=== PATIENT | female | born 1940 | race African-American/Black ===

== ENCOUNTER 2017-09-22 15:48 | Inpatient (IN) ==
[2017-09-22] MEDS ORDERED: methylPREDNISolone SOD SUC 40 MG/1 ML VIAL IV STA (16:21)
[2017-09-22] MEDS ORDERED: ORPHENADRINE 60 MG/2 ML VIAL IV STA (16:21)
[2017-09-22] MEDS ORDERED: KETOROLAC 30 MG/1 ML VIAL IV STA (16:21)
[2017-09-22] MEDS ORDERED: KETOROLAC 30 MG/1 ML VIAL ONE (16:33)
[2017-09-22] MEDS ORDERED: ORPHENADRINE 60 MG/2 ML VIAL ONE (16:33)
[2017-09-22] MEDS ORDERED: methylPREDNISolone SOD SUC 40 MG/1 ML VIAL ONE (16:34)
[2017-09-22] MEDS ORDERED: FUROSEMIDE 40 MG/4 ML VIAL IV STA (17:00)
[2017-09-22 17:16] LABS: Basophils # 0.1 10*3/uL (0.0-0.2); Basophils % 0.7 % (0.0-0.8); Eosinophils # 0.1 10*3/uL (0.0-0.87); Eosinophils % 1.2 % (0.00-10.9); Hematocrit 39.6 VOL% (35.7-47.0); Hemoglobin 13.6 GM/DL (12.0-16.0); Immature Granulocytes % 0.4 %; Immature Granulocytes Absolute 0.03 #; Lymphocytes # 1.7 10*3/uL (1.4-4.0); Mean Corpuscular HGB Conc 34.3 GM/DL (32-36); Mean Corpuscular Hemoglobin 30 PG (27-34); Mean Corpuscular Volume 86.7 FL (87-102); Mean Platelet Volume 9.8 FL (9.6-12.0); Monocytes # 0.8 10*3/uL (0.11-0.8); Monocytes % 10.1 % (1.7-12.7); Neutrophils # 5.6 10*3/uL (1.4-7.4); Neutrophils % 67.6 % (38.7-73.9); Platelet Count 215 T/CUMM (130-400); Red Blood Count 4.57 MC/CUMM (3.8-5.5); Red Cell Distribution Width 13.9 % (9.3-17.3); White Blood Count 8.3 T/CUMM (4-12)
[2017-09-22 17:25] LABS: INR 1.2; PT Patient Result 12.7 SECS; Partial Thromboplastin Time 33.8 SECS (0-40)
[2017-09-22] MEDS ORDERED: FUROSEMIDE 40 MG/4 ML VIAL ONE (17:38)
[2017-09-22 18:01] LABS: Albumin 2.7 G/DL (3.4-5.0); Bilirubin,Total 0.5 MG/DL (0.2-1.0); CKMB % 2.1 %; Calcium 8.2 MG/DL (8.5-10.1); Osmolality,Calculated 269.8 MOS/KG (273-304); Potassium 3.6 MMOL/L (3.5-5.1); Total Protein 7.6 G/DL (6.4-8.3); Troponin I Only 0.016 NG/ML (0.00-0.045)
[2017-09-22] MEDS ORDERED: hydrALAZINE 20 MG/1 ML VIAL IV STA ×2 (18:49→18:51)
[2017-09-22] MEDS ORDERED: NITROGLYCERIN 2% OINT 1 INCH/GM PACK TOP STA (19:02)
[2017-09-22] MEDS ORDERED: GLUCAGON 1 MG VIAL IM PRN (19:02)
[2017-09-22 19:17] LABS: Apearance,Urine CLEAR (Clear); Bilirubin,Urine Negative (Negative); Blood, Urine Moderate mg/dL (Negative); Glucose,Urine (UA) Negative (Negative); Hyaline Casts,Urine 1 /LPF (0-3); Ketones,Urine Negative (Negative); Mucus,Urine Occasional /LPF (Occasional); Nitrite,Urine Negative (Negative); Protein,Urine 100 MG/DL; RBC,Urine 14 /HPF (0-4); Squamous Epithelial Cell,Urine Occasional /HPF (0-10); Urine Color Straw (Yellow); Urine Specific Gravity 1.005 (1.001-1.035); Urine Urobilinogen < 2.0 EU/DL (0.2-1.0); WBC,Urine 1 /HPF (0-6)
[2017-09-22] MEDS ORDERED: NITROGLYCERIN 2% OINT 1 INCH/GM PACK TOP ONE (19:19)
[2017-09-22] MEDS ORDERED: hydrALAZINE 20 MG/1 ML VIAL ONE (19:20)
[2017-09-22] MEDS: INSULIN REGULAR 100 UNIT/ML SUBCUT SCH (21:25)
[2017-09-22] MEDS ORDERED: ALBUTEROL/IPRATROPIUM 3 ML NEB RESP TX PRN (21:57)
[2017-09-22] MEDS: tiZANidine 4 MG TABLET PO SCH (22:10)
[2017-09-23] MEDS ORDERED: INFLUENZA VIRUS VACCINE 0.5 ML SYRINGE IM ONE (03:12)
[2017-09-23] MEDS ORDERED: FUROSEMIDE 40 MG/4 ML VIAL IV SCH (08:00)
[2017-09-23 08:10] LABS: Albumin 2.4 G/DL (3.4-5.0); Bilirubin,Total 0.4 MG/DL (0.2-1.0); Calcium 8.6 MG/DL (8.5-10.1); Osmolality,Calculated 275.7 MOS/KG (273-304); Potassium 3.6 MMOL/L (3.5-5.1); Total Protein 6.6 G/DL (6.4-8.3)
[2017-09-23 09:50] LABS: Troponin I Only < 0.015 NG/ML (0.00-0.045)
[2017-09-23] MEDS: INSULIN REGULAR 100 UNIT/ML SUBCUT SCH ×4 (09:58→20:16)
[2017-09-23] MEDS: MAGNESIUM CHLORIDE 64 MG TABLET PO SCH (09:59)
[2017-09-23] MEDS: SERTRALINE 50 MG TABLET PO SCH (09:59)
[2017-09-23] MEDS: GLIMEPIRIDE 2 MG TABLET PO SCH (09:59)
[2017-09-23] MEDS: NEBIVOLOL 5 MG TABLET PO SCH (10:00)
[2017-09-23] MEDS: POTASSIUM CHLORIDE 10 MEQ TABLET PO SCH ×2 (10:00→21:54)
[2017-09-23] MEDS: LEVOTHYROXINE 100 MCG TABLET PO SCH (10:00)
[2017-09-23] MEDS: LOSARTAN 50 MG TABLET PO SCH (10:00)
[2017-09-23] MEDS: ASPIRIN CHEW 81 MG TABLET PO SCH (10:00)
[2017-09-23] MEDS: tiZANidine 4 MG TABLET PO SCH ×3 (10:00→21:54)
[2017-09-23] MEDS: FUROSEMIDE 20 MG/2 ML VIAL IV SCH ×2 (10:28→18:41)
[2017-09-23 10:56] LABS: Troponin I Only 0.016 NG/ML (0.00-0.045)
[2017-09-23 13:44] LABS: Troponin I Only < 0.015 NG/ML (0.00-0.045)
[2017-09-23 16:24] LABS: CKMB % 3.1 %; Troponin I Only < 0.015 NG/ML (0.00-0.045)
[2017-09-23] MEDS ORDERED: FAMOTIDINE 20 MG TABLET PO SCH (21:00)
[2017-09-24 06:20] LABS: Basophils # 0.1 10*3/uL (0.0-0.2); Basophils % 0.4 % (0.0-0.8); Eosinophils # 0.1 10*3/uL (0.0-0.87); Eosinophils % 0.8 % (0.00-10.9); Hematocrit 32.7 VOL% (35.7-47.0); Hemoglobin 11.2 GM/DL (12.0-16.0); Immature Granulocytes % 0.3 %; Immature Granulocytes Absolute 0.04 #; Lymphocytes # 3.2 10*3/uL (1.4-4.0); Lymphocytes % 26.3 % (21.3-54.2); Mean Corpuscular HGB Conc 34.3 GM/DL (32-36); Mean Corpuscular Hemoglobin 30 PG (27-34); Mean Corpuscular Volume 86.7 FL (87-102); Mean Platelet Volume 10.7 FL (9.6-12.0); Monocytes # 0.9 10*3/uL (0.11-0.8); Monocytes % 7.4 % (1.7-12.7); Neutrophils # 7.7 10*3/uL (1.4-7.4); Neutrophils % 64.8 % (38.7-73.9); Platelet Count 244 T/CUMM (130-400); Red Blood Count 3.77 MC/CUMM (3.8-5.5); Red Cell Distribution Width 14.3 % (9.3-17.3)
[2017-09-24 07:06] LABS: Calcium 8.1 MG/DL (8.5-10.1); Magnesium 2.4 MG/DL (1.8-2.4); Osmolality,Calculated 276.5 MOS/KG (273-304); Potassium 3.3 MMOL/L (3.5-5.1)
[2017-09-24 07:18] LABS: Risk Ratio 2.84; VLDL CHOLESTEROL 19.2 MG/DL
[2017-09-24] MEDS: ALUMINUM/MAGNES/SIMETH MAX STR 30 ML UDCUP PO PRN ×3 (09:30→21:42)
[2017-09-24] MEDS: ALBUTEROL/IPRATROPIUM 3 ML NEB RESP TX SCH ×4 (10:46→23:20)
[2017-09-24] MEDS: INSULIN REGULAR 100 UNIT/ML SUBCUT SCH ×4 (12:05→20:50)
[2017-09-24] MEDS: LEVOTHYROXINE 100 MCG TABLET PO SCH (12:51)
[2017-09-24] MEDS: MAGNESIUM CHLORIDE 64 MG TABLET PO SCH (12:51)
[2017-09-24] MEDS: POTASSIUM CHLORIDE 10 MEQ TABLET PO SCH ×2 (12:52→20:51)
[2017-09-24] MEDS: GLIMEPIRIDE 2 MG TABLET PO SCH (12:52)
[2017-09-24] MEDS: SERTRALINE 50 MG TABLET PO SCH (12:52)
[2017-09-24] MEDS: ASPIRIN CHEW 81 MG TABLET PO SCH (12:52)
[2017-09-24] MEDS: tiZANidine 4 MG TABLET PO SCH ×3 (12:53→20:51)
[2017-09-24] MEDS: FUROSEMIDE 20 MG/2 ML VIAL IV SCH ×2 (12:53→15:35)
[2017-09-24] MEDS: NEBIVOLOL 5 MG TABLET PO SCH (12:53)
[2017-09-24] MEDS: LOSARTAN 50 MG TABLET PO SCH (13:03)
[2017-09-24] MEDS: ONDANSETRON 4 MG/2 ML VIAL IV PRN (14:02)
[2017-09-24] MEDS: POLYETHYLENE GLYCOL POWDER 17 GM PACK PO PRN (20:56)
[2017-09-24] MEDS ORDERED: FAMOTIDINE 20 MG TABLET PO SCH (21:00)
[2017-09-24 21:11] LABS: CKMB % 6.9 %; Troponin I Only < 0.015 NG/ML (0.00-0.045)
[2017-09-25] MEDS: ALBUTEROL/IPRATROPIUM 3 ML NEB RESP TX SCH ×5 (03:37→20:20)
[2017-09-25 03:44] LABS: Magnesium 2.5 MG/DL (1.8-2.4); Osmolality,Calculated 276.5 MOS/KG (273-304); Potassium 3.8 MMOL/L (3.5-5.1)
[2017-09-25 03:55] LABS: CKMB % 6.2 %; Troponin I Only 0.016 NG/ML (0.00-0.045)
[2017-09-25 03:56] LABS: Basophils # 0.1 10*3/uL (0.0-0.2); Basophils % 0.6 % (0.0-0.8); Eosinophils # 0.1 10*3/uL (0.0-0.87); Eosinophils % 1.3 % (0.00-10.9); Hematocrit 32.1 VOL% (35.7-47.0); Hemoglobin 10.8 GM/DL (12.0-16.0); Immature Granulocytes % 0.3 %; Immature Granulocytes Absolute 0.03 #; Lymphocytes # 2.7 10*3/uL (1.4-4.0); Lymphocytes % 29.5 % (21.3-54.2); Mean Corpuscular HGB Conc 33.6 GM/DL (32-36); Mean Corpuscular Hemoglobin 30 PG (27-34); Mean Corpuscular Volume 87.9 FL (87-102); Mean Platelet Volume 11.4 FL (9.6-12.0); Monocytes # 0.9 10*3/uL (0.11-0.8); Monocytes % 9.7 % (1.7-12.7); Neutrophils # 5.5 10*3/uL (1.4-7.4); Neutrophils % 58.6 % (38.7-73.9); Platelet Count 139 T/CUMM (130-400); Red Blood Count 3.65 MC/CUMM (3.8-5.5); Red Cell Distribution Width 14.7 % (9.3-17.3); White Blood Count 9.3 T/CUMM (4-12)
[2017-09-25 05:46] LABS: Hypochromasia 2+; Platelet Estimate Decreased
[2017-09-25] MEDS: traMADol 50 MG TABLET PO PRN (05:51)
[2017-09-25 08:23] LABS: CKMB % 6.1 %; Troponin I Only < 0.015 NG/ML (0.00-0.045)
[2017-09-25] MEDS: tiZANidine 4 MG TABLET PO SCH ×3 (09:19→21:32)
[2017-09-25] MEDS: LEVOTHYROXINE 100 MCG TABLET PO SCH (09:19)
[2017-09-25] MEDS: MAGNESIUM CHLORIDE 64 MG TABLET PO SCH (09:19)
[2017-09-25] MEDS: POTASSIUM CHLORIDE 10 MEQ TABLET PO SCH ×2 (09:20→21:32)
[2017-09-25] MEDS: SERTRALINE 50 MG TABLET PO SCH (09:20)
[2017-09-25] MEDS: ASPIRIN CHEW 81 MG TABLET PO SCH (09:20)
[2017-09-25] MEDS: INSULIN REGULAR 100 UNIT/ML SUBCUT SCH ×4 (09:20→21:31)
[2017-09-25] MEDS: GLIMEPIRIDE 2 MG TABLET PO SCH (09:20)
[2017-09-25] MEDS: FUROSEMIDE 20 MG/2 ML VIAL IV SCH ×2 (09:21→15:02)
[2017-09-25] MEDS: ALUMINUM/MAGNES/SIMETH MAX STR 30 ML UDCUP PO PRN (11:05)
[2017-09-25] MEDS: PANTOPRAZOLE 40 MG TABLET PO SCH (14:55)
[2017-09-25] MEDS: POLYETHYLENE GLYCOL POWDER 17 GM PACK PO PRN (21:33)
[2017-09-26] MEDS: ALBUTEROL/IPRATROPIUM 3 ML NEB RESP TX SCH ×6 (00:40→19:35)
[2017-09-26] MEDS: traMADol 50 MG TABLET PO PRN (02:00)
[2017-09-26 02:23] LABS: Basophils # 0.1 10*3/uL (0.0-0.2); Basophils % 0.8 % (0.0-0.8); Eosinophils # 0.2 10*3/uL (0.0-0.87); Eosinophils % 2.1 % (0.00-10.9); Hematocrit 31.6 VOL% (35.7-47.0); Hemoglobin 10.8 GM/DL (12.0-16.0); Immature Granulocytes % 0.3 %; Immature Granulocytes Absolute 0.02 #; Lymphocytes # 2.5 10*3/uL (1.4-4.0); Lymphocytes % 32.7 % (21.3-54.2); Mean Corpuscular HGB Conc 34.2 GM/DL (32-36); Mean Corpuscular Hemoglobin 30 PG (27-34); Mean Corpuscular Volume 88.5 FL (87-102); Mean Platelet Volume 10.8 FL (9.6-12.0); Monocytes # 0.8 10*3/uL (0.11-0.8); Monocytes % 10.9 % (1.7-12.7); NRBC # 0.02 10*3/uL; Neutrophils # 4.1 10*3/uL (1.4-7.4); Neutrophils % 53.2 % (38.7-73.9); Platelet Count 230 T/CUMM (130-400); Red Blood Count 3.57 MC/CUMM (3.8-5.5); Red Cell Distribution Width 14.7 % (9.3-17.3); White Blood Count 7.7 T/CUMM (4-12)
[2017-09-26 02:55] LABS: Calcium 7.9 MG/DL (8.5-10.1); Magnesium 2.8 MG/DL (1.8-2.4); Osmolality,Calculated 276.5 MOS/KG (273-304); Potassium 3.7 MMOL/L (3.5-5.1)
[2017-09-26] MEDS: ALUMINUM/MAGNES/SIMETH MAX STR 30 ML UDCUP PO PRN ×3 (04:15→21:13)
[2017-09-26] MEDS: INSULIN REGULAR 100 UNIT/ML SUBCUT SCH ×4 (08:33→21:13)
[2017-09-26] MEDS: PANTOPRAZOLE 40 MG TABLET PO SCH (09:19)
[2017-09-26] MEDS: GLIMEPIRIDE 2 MG TABLET PO SCH (09:19)
[2017-09-26] MEDS: LEVOTHYROXINE 100 MCG TABLET PO SCH (09:19)
[2017-09-26] MEDS: POTASSIUM CHLORIDE 10 MEQ TABLET PO SCH ×2 (09:21→21:11)
[2017-09-26] MEDS: ASPIRIN CHEW 81 MG TABLET PO SCH (09:21)
[2017-09-26] MEDS: MAGNESIUM CHLORIDE 64 MG TABLET PO SCH (09:21)
[2017-09-26] MEDS: FUROSEMIDE 20 MG/2 ML VIAL IV SCH ×2 (09:22→15:35)
[2017-09-26] MEDS: SERTRALINE 50 MG TABLET PO SCH (09:22)
[2017-09-26] MEDS: tiZANidine 4 MG TABLET PO SCH ×3 (09:22→21:12)
[2017-09-26] MEDS: ONDANSETRON 4 MG/2 ML VIAL IV PRN (09:33)
[2017-09-26] MEDS ORDERED: HYDROmorphone 2 MG/1 ML VIAL IV ONE (10:15)
[2017-09-26] MEDS: HYDROmorphone 2 MG/1 ML VIAL IV PRN ×2 (21:12→21:17)
[2017-09-26] MEDS: POLYETHYLENE GLYCOL POWDER 17 GM PACK PO SCH (21:13)
[2017-09-27] MEDS: ALBUTEROL/IPRATROPIUM 3 ML NEB RESP TX SCH ×6 (00:34→19:23)
[2017-09-27 04:29] LABS: Basophils # 0.1 10*3/uL (0.0-0.2); Basophils % 0.6 % (0.0-0.8); Eosinophils # 0.2 10*3/uL (0.0-0.87); Eosinophils % 2.7 % (0.00-10.9); Hematocrit 33.7 VOL% (35.7-47.0); Hemoglobin 11.1 GM/DL (12.0-16.0); Immature Granulocytes % 0.2 %; Immature Granulocytes Absolute 0.02 #; Mean Corpuscular HGB Conc 32.9 GM/DL (32-36); Mean Corpuscular Hemoglobin 30 PG (27-34); Mean Corpuscular Volume 90.1 FL (87-102); Mean Platelet Volume 10.4 FL (9.6-12.0); Monocytes % 12.4 % (1.7-12.7); Neutrophils # 3.9 10*3/uL (1.4-7.4); Neutrophils % 47.1 % (38.7-73.9); Platelet Count 247 T/CUMM (130-400); Red Blood Count 3.74 MC/CUMM (3.8-5.5); Red Cell Distribution Width 14.8 % (9.3-17.3); White Blood Count 8.2 T/CUMM (4-12)
[2017-09-27] MEDS: DEXTROSE 50% 25 GM/50 ML VIAL IV PRN ×2 (04:55→07:55)
[2017-09-27 05:04] LABS: Calcium 8.2 MG/DL (8.5-10.1); Osmolality,Calculated 265.2 MOS/KG (273-304); Potassium 4.6 MMOL/L (3.5-5.1)
[2017-09-27] MEDS ORDERED: LORazepam 2 MG/1 ML VIAL IV ONE (08:13)
[2017-09-27] MEDS ORDERED: methylPREDNISolone SOD SUC 125 MG/2 ML VIAL IV ONE (08:14)
[2017-09-27] MEDS: FUROSEMIDE 20 MG/2 ML VIAL IV SCH ×2 (10:10→17:04)
[2017-09-27] MEDS: INSULIN REGULAR 100 UNIT/ML SUBCUT SCH ×4 (10:50→22:08)
[2017-09-27] MEDS: GLIMEPIRIDE 2 MG TABLET PO SCH (10:51)
[2017-09-27] MEDS: tiZANidine 4 MG TABLET PO SCH ×3 (10:51→22:08)
[2017-09-27] MEDS ORDERED: DEXTROSE 5% NACL 0.45% 1,000 ML IV SCH (12:30)
[2017-09-27] MEDS: DEXTROSE 5% NACL 0.9% 1,000 ML IV SCH (12:46)
[2017-09-27] MEDS: HYDROmorphone 2 MG/1 ML VIAL IV PRN ×2 (15:28→23:43)
[2017-09-27] MEDS: ISOSORBIDE MONONITRATE 30 MG TABLET PO SCH (15:29)
[2017-09-27] MEDS: LEVOTHYROXINE 100 MCG TABLET PO SCH (15:29)
[2017-09-27] MEDS: SERTRALINE 50 MG TABLET PO SCH (15:29)
[2017-09-27] MEDS: POLYETHYLENE GLYCOL POWDER 17 GM PACK PO SCH ×2 (15:30→22:09)
[2017-09-27] MEDS: PANTOPRAZOLE 40 MG TABLET PO SCH (15:30)
[2017-09-27] MEDS: POTASSIUM CHLORIDE 10 MEQ TABLET PO SCH ×2 (15:30→22:09)
[2017-09-27] MEDS: MAGNESIUM CHLORIDE 64 MG TABLET PO SCH (15:30)
[2017-09-27 17:56] LABS: Osmolality,Calculated 266.5 MOS/KG (273-304)
[2017-09-27] MEDS ORDERED: SODIUM POLYSTYRENE SULFATE 15 GM/60 ML BOTTLE PO ONE (18:07)
[2017-09-28] MEDS: ALBUTEROL/IPRATROPIUM 3 ML NEB RESP TX SCH ×6 (01:14→19:11)
[2017-09-28 09:54] LABS: Calcium 8.9 MG/DL (8.5-10.1); Osmolality,Calculated 264.4 MOS/KG (273-304); Potassium 5.3 MMOL/L (3.5-5.1)
[2017-09-28] MEDS: INSULIN REGULAR 100 UNIT/ML SUBCUT SCH ×4 (10:10→23:28)
[2017-09-28] MEDS: GLIMEPIRIDE 2 MG TABLET PO SCH (10:14)
[2017-09-28] MEDS: FUROSEMIDE 20 MG/2 ML VIAL IV SCH (10:43)
[2017-09-28] MEDS: POTASSIUM CHLORIDE 10 MEQ TABLET PO SCH (10:44)
[2017-09-28] MEDS: ISOSORBIDE MONONITRATE 30 MG TABLET PO SCH (10:44)
[2017-09-28] MEDS: POLYETHYLENE GLYCOL POWDER 17 GM PACK PO SCH ×2 (10:44→23:28)
[2017-09-28] MEDS: DEXTROSE 5% NACL 0.9% 1,000 ML IV SCH (10:44)
[2017-09-28] MEDS: PANTOPRAZOLE 40 MG TABLET PO SCH (10:44)
[2017-09-28] MEDS: LEVOTHYROXINE 100 MCG TABLET PO SCH (10:45)
[2017-09-28] MEDS: MAGNESIUM CHLORIDE 64 MG TABLET PO SCH (10:45)
[2017-09-28] MEDS: tiZANidine 4 MG TABLET PO SCH (10:45)
[2017-09-28] MEDS: SERTRALINE 50 MG TABLET PO SCH (10:47)
[2017-09-28 11:24] LABS: Hemoglobin 12.3 GM/DL (12.0-16.0); Immature Granulocytes % 0.5 %; Immature Granulocytes Absolute 0.03 #; Lymphocytes # 0.8 10*3/uL (1.4-4.0); Lymphocytes % 13.6 % (21.3-54.2); Mean Corpuscular HGB Conc 33.2 GM/DL (32-36); Mean Corpuscular Hemoglobin 29 PG (27-34); Mean Corpuscular Volume 88.5 FL (87-102); Mean Platelet Volume 10.9 FL (9.6-12.0); Monocytes # 0.3 10*3/uL (0.11-0.8); Monocytes % 4.4 % (1.7-12.7); Neutrophils # 4.6 10*3/uL (1.4-7.4); Neutrophils % 81.5 % (38.7-73.9); Platelet Count 331 T/CUMM (130-400); Red Blood Count 4.18 MC/CUMM (3.8-5.5); Red Cell Distribution Width 14.6 % (9.3-17.3); White Blood Count 5.7 T/CUMM (4-12)
[2017-09-28] MEDS: ALBUMIN 25% 12.5 GM in PREMIX 1 EACH IV SCH (14:14)
[2017-09-28] MEDS: CLORAZEPATE 7.5 MG TABLET PO SCH ×2 (14:14→23:28)
[2017-09-28] MEDS: FUROSEMIDE 40 MG/4 ML VIAL IV SCH (17:45)
[2017-09-28] MEDS: DOBUTamine 500 MG/250 ML PREMIX IV SCH (17:51)
[2017-09-28] MEDS ORDERED: diphenhydrAMINE CAP 50 MG CAPSULE PO PRN (22:17)
[2017-09-28] MEDS ORDERED: diphenhydrAMINE 50 MG/1 ML VIAL IV STA (22:28)
[2017-09-28] MEDS ORDERED: LORazepam 2 MG/1 ML VIAL IV ONE (22:28)
[2017-09-28] MEDS ORDERED: diphenhydrAMINE 50 MG/1 ML VIAL ONE (22:30)
[2017-09-29] MEDS: ALBUTEROL/IPRATROPIUM 3 ML NEB RESP TX SCH ×7 (00:45→23:42)
[2017-09-29] MEDS: ALBUMIN 25% 12.5 GM in PREMIX 1 EACH IV SCH ×2 (02:47→17:15)
[2017-09-29 04:51] LABS: Basophils % 0.3 % (0.0-0.8); Eosinophils # 0.1 10*3/uL (0.0-0.87); Eosinophils % 1.1 % (0.00-10.9); Hematocrit 29.3 VOL% (35.7-47.0); Hemoglobin 10.1 GM/DL (12.0-16.0); Immature Granulocytes % 0.3 %; Immature Granulocytes Absolute 0.03 #; Lymphocytes # 2.9 10*3/uL (1.4-4.0); Lymphocytes % 28.8 % (21.3-54.2); Mean Corpuscular HGB Conc 34.5 GM/DL (32-36); Mean Corpuscular Hemoglobin 30 PG (27-34); Mean Corpuscular Volume 87.7 FL (87-102); Monocytes # 1.1 10*3/uL (0.11-0.8); Monocytes % 11.1 % (1.7-12.7); Neutrophils # 5.8 10*3/uL (1.4-7.4); Neutrophils % 58.4 % (38.7-73.9); Platelet Count 247 T/CUMM (130-400); Red Blood Count 3.34 MC/CUMM (3.8-5.5); Red Cell Distribution Width 14.5 % (9.3-17.3); White Blood Count 9.9 T/CUMM (4-12)
[2017-09-29 05:22] LABS: Calcium 8.3 MG/DL (8.5-10.1); Magnesium 2.7 MG/DL (1.8-2.4); Osmolality,Calculated 272.9 MOS/KG (273-304); Potassium 4.1 MMOL/L (3.5-5.1)
[2017-09-29] MEDS: INSULIN REGULAR 100 UNIT/ML SUBCUT SCH ×4 (08:43→22:51)
[2017-09-29] MEDS: DEXTROSE 5% NACL 0.9% 1,000 ML IV SCH (08:44)
[2017-09-29] MEDS ORDERED: PROPOFOL 200 MG/20 ML VIAL IV ONE (09:00)
[2017-09-29] MEDS ORDERED: LIDOCAINE 100 MG/5 ML SYRINGE ONE (09:00)
[2017-09-29] MEDS ORDERED: BENZOCAINE 20% SPRAY 57 GM CAN TOP ONE (09:00)
[2017-09-29] MEDS ORDERED: ETOMIDATE 20 MG/10 ML VIAL IV ONE (09:00)
[2017-09-29] MEDS: DOBUTamine 500 MG/250 ML PREMIX IV SCH (10:57)
[2017-09-29] MEDS: POLYETHYLENE GLYCOL POWDER 17 GM PACK PO SCH ×2 (10:58→22:51)
[2017-09-29] MEDS: GLIMEPIRIDE 2 MG TABLET PO SCH (11:08)
[2017-09-29] MEDS: ASPIRIN CHEW 81 MG TABLET PO SCH (11:08)
[2017-09-29] MEDS: MAGNESIUM CHLORIDE 64 MG TABLET PO SCH (11:09)
[2017-09-29] MEDS: PANTOPRAZOLE 40 MG TABLET PO SCH (11:09)
[2017-09-29] MEDS: ISOSORBIDE MONONITRATE 30 MG TABLET PO SCH (11:09)
[2017-09-29] MEDS: CLORAZEPATE 7.5 MG TABLET PO SCH ×2 (11:09→22:51)
[2017-09-29] MEDS: SERTRALINE 50 MG TABLET PO SCH (11:09)
[2017-09-29] MEDS: LEVOTHYROXINE 100 MCG TABLET PO SCH (11:12)
[2017-09-29] MEDS: FUROSEMIDE 40 MG/4 ML VIAL IV SCH ×2 (11:33→17:17)
[2017-09-29] MEDS: traMADol 50 MG TABLET PO PRN (17:39)
[2017-09-30] MEDS: DEXTROSE 5% NACL 0.9% 1,000 ML IV SCH ×3 (01:00→21:00)
[2017-09-30] MEDS: DOBUTamine 500 MG/250 ML PREMIX IV SCH ×3 (02:00→18:47)
[2017-09-30] MEDS: ALBUTEROL/IPRATROPIUM 3 ML NEB RESP TX SCH ×6 (03:07→23:58)
[2017-09-30 06:29] LABS: Calcium 8.2 MG/DL (8.5-10.1); Magnesium 2.3 MG/DL (1.8-2.4)
[2017-09-30 06:30] LABS: Osmolality,Calculated 280.2 MOS/KG (273-304); Potassium 3.8 MMOL/L (3.5-5.1)
[2017-09-30] MEDS: ALBUMIN 25% 12.5 GM in PREMIX 1 EACH IV SCH ×2 (06:42→18:18)
[2017-09-30 07:05] LABS: Basophils # 0.1 10*3/uL (0.0-0.2); Basophils % 0.5 % (0.0-0.8); Eosinophils # 0.1 10*3/uL (0.0-0.87); Eosinophils % 1.3 % (0.00-10.9); Hematocrit 31.3 VOL% (35.7-47.0); Hemoglobin 10.3 GM/DL (12.0-16.0); Immature Granulocytes % 0.7 %; Immature Granulocytes Absolute 0.06 #; Lymphocytes # 2.4 10*3/uL (1.4-4.0); Mean Corpuscular HGB Conc 32.9 GM/DL (32-36); Mean Corpuscular Hemoglobin 30 PG (27-34); Mean Corpuscular Volume 91.5 FL (87-102); Mean Platelet Volume 10.5 FL (9.6-12.0); Monocytes # 1.2 10*3/uL (0.11-0.8); Monocytes % 13.5 % (1.7-12.7); Neutrophils # 5.3 10*3/uL (1.4-7.4); Platelet Count 190 T/CUMM (130-400); Red Blood Count 3.42 MC/CUMM (3.8-5.5); Red Cell Distribution Width 14.5 % (9.3-17.3); White Blood Count 9.2 T/CUMM (4-12)
[2017-09-30 07:37] LABS: Hypochromasia 1+
[2017-09-30 07:38] LABS: Giant Platelets Few; Ovalocytes Slight; Platelet Estimate Normal
[2017-09-30 07:42] LABS: INR 1.3; Partial Thromboplastin Time 34.1 SECS (0-40)
[2017-09-30] MEDS: GLIMEPIRIDE 2 MG TABLET PO SCH (12:09)
[2017-09-30] MEDS: POLYETHYLENE GLYCOL POWDER 17 GM PACK PO SCH ×2 (12:10→22:54)
[2017-09-30] MEDS: ISOSORBIDE MONONITRATE 30 MG TABLET PO SCH (12:10)
[2017-09-30] MEDS: PANTOPRAZOLE 40 MG TABLET PO SCH (12:10)
[2017-09-30] MEDS: MAGNESIUM CHLORIDE 64 MG TABLET PO SCH (12:10)
[2017-09-30] MEDS: CLORAZEPATE 7.5 MG TABLET PO SCH ×2 (12:11→22:55)
[2017-09-30] MEDS: SERTRALINE 50 MG TABLET PO SCH (12:11)
[2017-09-30] MEDS: LEVOTHYROXINE 100 MCG TABLET PO SCH (12:11)
[2017-09-30] MEDS: FUROSEMIDE 40 MG/4 ML VIAL IV SCH ×2 (12:29→18:25)
[2017-09-30] MEDS: INSULIN REGULAR 100 UNIT/ML SUBCUT SCH ×4 (12:38→22:53)
[2017-09-30] MEDS: traMADol 50 MG TABLET PO PRN (15:42)
[2017-10-01] MEDS: ALBUTEROL/IPRATROPIUM 3 ML NEB RESP TX SCH ×3 (04:04→11:09)
[2017-10-01 04:39] LABS: Basophils % 0.3 % (0.0-0.8); Eosinophils # 0.2 10*3/uL (0.0-0.87); Eosinophils % 1.8 % (0.00-10.9); Hematocrit 31.2 VOL% (35.7-47.0); Hemoglobin 10.5 GM/DL (12.0-16.0); Immature Granulocytes % 0.5 %; Immature Granulocytes Absolute 0.05 #; Lymphocytes # 2.1 10*3/uL (1.4-4.0); Lymphocytes % 21.2 % (21.3-54.2); Mean Corpuscular HGB Conc 33.7 GM/DL (32-36); Mean Corpuscular Hemoglobin 30 PG (27-34); Mean Corpuscular Volume 87.6 FL (87-102); Mean Platelet Volume 10.6 FL (9.6-12.0); Monocytes # 1.5 10*3/uL (0.11-0.8); Monocytes % 15.2 % (1.7-12.7); Neutrophils # 6.1 10*3/uL (1.4-7.4); Platelet Count 189 T/CUMM (130-400); Red Blood Count 3.56 MC/CUMM (3.8-5.5); Red Cell Distribution Width 14.2 % (9.3-17.3); White Blood Count 10.1 T/CUMM (4-12)
[2017-10-01 04:59] LABS: Calcium 8.1 MG/DL (8.5-10.1); Magnesium 1.9 MG/DL (1.8-2.4); Osmolality,Calculated 281.8 MOS/KG (273-304); Potassium 3.2 MMOL/L (3.5-5.1)
[2017-10-01 05:19] LABS: Eosinophils 3 % (0-10); Giant Platelets Few; Hypochromasia 1+; Lymphocytes 20 % (20-55); Ovalocytes Slight; Platelet Estimate Normal; Segmented Neutrophils 60 % (50-85); Total Cells Counted 100
[2017-10-01] MEDS: ALBUMIN 25% 12.5 GM in PREMIX 1 EACH IV SCH (06:14)
[2017-10-01] MEDS ORDERED: POTASSIUM CHLORIDE 20 MEQ TABLET PO ONE (07:26)
[2017-10-01] MEDS: INSULIN REGULAR 100 UNIT/ML SUBCUT SCH ×2 (07:45→11:29)
[2017-10-01] MEDS: PANTOPRAZOLE 40 MG TABLET PO SCH (08:35)
[2017-10-01] MEDS: SERTRALINE 50 MG TABLET PO SCH (08:35)
[2017-10-01] MEDS: LEVOTHYROXINE 100 MCG TABLET PO SCH (08:35)
[2017-10-01] MEDS: ISOSORBIDE MONONITRATE 30 MG TABLET PO SCH (08:35)
[2017-10-01] MEDS: MAGNESIUM CHLORIDE 64 MG TABLET PO SCH (08:35)
[2017-10-01] MEDS: POLYETHYLENE GLYCOL POWDER 17 GM PACK PO SCH (08:36)
[2017-10-01] MEDS: FUROSEMIDE 40 MG/4 ML VIAL IV SCH (08:36)
[2017-10-01] MEDS ORDERED: traMADol 50 MG TABLET PO PRN (10:12)
[2017-10-01] MEDS: CLORAZEPATE 7.5 MG TABLET PO SCH (10:27)
[2017-10-01] MEDS: GLIMEPIRIDE 2 MG TABLET PO SCH (11:29)
[2017-10-01 11:50] VITALS: BP 147/57
== END 2017-10-01 14:02 | DRG 291 ==
LOC: N.ED 15:48 → N.EDINP 19:00 → N.TELES 19:49
PROVIDERS: ADMIT Family Medicine; ATTEND Family Medicine

== ENCOUNTER 2017-11-03 11:41 | Inpatient (IN) ==
[2017-11-03] MEDS ORDERED: GLUCAGON 1 MG VIAL IM PRN (11:53)
[2017-11-03] MEDS ORDERED: DEXTROSE 50% 25 GM/50 ML VIAL IV PRN (11:53)
[2017-11-03] MEDS ORDERED: ALBUTEROL/IPRATROPIUM 3 ML NEB RESP TX PRN (12:05)
[2017-11-03] MEDS: NITROGLYCERIN SL 0.4 MG TABLET SL PRN (12:58)
[2017-11-03] MEDS ORDERED: ASPIRIN CHEW 81 MG TABLET PO ONE (13:02)
[2017-11-03 13:21] LABS: Basophils % 0.6 % (0.0-0.8); Eosinophils # 0.1 10*3/uL (0.0-0.87); Eosinophils % 1.8 % (0.00-10.9); Hematocrit 32.8 VOL% (35.7-47.0); Hemoglobin 11.8 GM/DL (12.0-16.0); Immature Granulocytes % 0.2 %; Immature Granulocytes Absolute 0.01 #; Lymphocytes # 1.8 10*3/uL (1.4-4.0); Lymphocytes % 29.8 % (21.3-54.2); Mean Corpuscular Hemoglobin 29 PG (27-34); Monocytes # 0.5 10*3/uL (0.11-0.8); Monocytes % 8.3 % (1.7-12.7); Neutrophils # 3.7 10*3/uL (1.4-7.4); Neutrophils % 59.3 % (38.7-73.9); Platelet Count 153 T/CUMM (130-400); Red Blood Count 4.05 MC/CUMM (3.8-5.5); Red Cell Distribution Width 12.8 % (9.3-17.3); White Blood Count 6.2 T/CUMM (4-12)
[2017-11-03] MEDS: ONDANSETRON 4 MG/2 ML VIAL IV PRN (13:45)
[2017-11-03 13:57] LABS: Alanine Aminotransferase 34 U/L (13-56); Albumin 3.3 G/DL (3.4-5.0); Alkaline Phosphatase 211 U/L (45-117); Aspartate Amino Transferase 56 U/L (0-37); Bilirubin,Total < 0.39 MG/DL (0.2-1.0); Blood Urea Nitrogen 41 MG/DL (7-18); Calcium 9.3 MG/DL (8.5-10.1); Glucose 103 MG/DL (74-106); Magnesium 2.2 MG/DL (1.8-2.4); Osmolality,Calculated 245.6 MOS/KG (273-304); Potassium 3.1 MMOL/L (3.5-5.1); Total Protein 7.1 G/DL (6.4-8.3)
[2017-11-03 13:58] LABS: Troponin I Only < 0.015 NG/ML (0.00-0.045)
[2017-11-03] MEDS ORDERED: SODIUM CHLORIDE 0.45% 1,000 ML IV SCH (14:00)
[2017-11-03 14:04] LABS: Free T4 (Free Thyroxine) 1.69 NG/DL (0.76-1.46); Thyroid Stimulating Hormone 5.77 uIU/ml (0.358-3.74)
[2017-11-03 14:05] LABS: Sodium 117 MMOL/L (136-145)
[2017-11-03] MEDS ORDERED: POTASSIUM CHLORIDE RIDER 10 MEQ in PREMIX 1 EACH IV PRN (14:10)
[2017-11-03] MEDS: SODIUM CHLORIDE 0.9% 1,000 ML IV SCH (14:30)
[2017-11-03] MEDS: MORPHINE 2 MG/1 ML SYRINGE IV PRN (14:30)
[2017-11-03] MEDS: FAMOTIDINE 20 MG/2 ML VIAL IV SCH (14:38)
[2017-11-03] MEDS: ENOXAPARIN 30 MG/0.3 ML SYRINGE SUBCUT SCH (14:41)
[2017-11-03 15:01] LABS: Apearance,Urine CLEAR (Clear); Bilirubin,Urine Negative (Negative); Blood, Urine Negative (Negative); Glucose,Urine (UA) Negative (Negative); Ketones,Urine Negative (Negative); Nitrite,Urine Negative (Negative); Protein,Urine 100 MG/DL; RBC,Urine 4 /HPF (0-4); Squamous Epithelial Cell,Urine Occasional /HPF (0-10); Urine Color Yellow (Yellow); Urine Specific Gravity 1.005 (1.001-1.035); Urine Urobilinogen < 2.0 EU/DL (0.2-1.0); WBC,Urine 2 /HPF (0-6)
[2017-11-03] MEDS ORDERED: POTASSIUM CHLORIDE INJ 40 MEQ in SODIUM CHLORIDE 0.9% 500 ML IV SCH (15:30)
[2017-11-03 16:23] LABS: Barbiturates Screen,Urine Negative (Negative); Benzodiazepines Screen,Urine Positive (Negative); Cannabinoid Screen,Urine Negative (Negative); Opiate Screen,Urine Negative (Negative); Phencyclidine Screen,Urine Negative (Negative)
[2017-11-03] MEDS: INSULIN REGULAR 100 UNIT/ML SUBCUT SCH ×2 (18:29→20:19)
[2017-11-03 20:48] LABS: Troponin I Only 0.015 NG/ML (0.00-0.045)
[2017-11-03 20:52] LABS: Free T4 (Free Thyroxine) 1.41 NG/DL (0.76-1.46); Thyroid Stimulating Hormone 4.12 uIU/ml (0.358-3.74)
[2017-11-03] MEDS ORDERED: POLYETHYLENE GLYCOL POWDER 17 GM PACK PO SCH (21:00)
[2017-11-04] MEDS: SODIUM CHLORIDE 0.9% 1,000 ML IV SCH ×4 (04:01→23:21)
[2017-11-04 05:38] LABS: Basophils % 0.5 % (0.0-0.8); Eosinophils # 0.1 10*3/uL (0.0-0.87); Eosinophils % 1.7 % (0.00-10.9); Hematocrit 29.4 VOL% (35.7-47.0); Hemoglobin 10.4 GM/DL (12.0-16.0); Immature Granulocytes % 0.5 %; Immature Granulocytes Absolute 0.03 #; Lymphocytes # 1.9 10*3/uL (1.4-4.0); Lymphocytes % 30.9 % (21.3-54.2); Mean Corpuscular HGB Conc 35.4 GM/DL (32-36); Mean Corpuscular Hemoglobin 29 PG (27-34); Mean Corpuscular Volume 81.9 FL (87-102); Mean Platelet Volume 11.3 FL (9.6-12.0); Monocytes # 0.6 10*3/uL (0.11-0.8); Monocytes % 9.1 % (1.7-12.7); Neutrophils # 3.5 10*3/uL (1.4-7.4); Neutrophils % 57.3 % (38.7-73.9); Platelet Count 180 T/CUMM (130-400); Red Blood Count 3.59 MC/CUMM (3.8-5.5); White Blood Count 6.1 T/CUMM (4-12)
[2017-11-04 06:05] LABS: Calcium 8.2 MG/DL (8.5-10.1); Osmolality,Calculated 252.9 MOS/KG (273-304); Potassium 3.5 MMOL/L (3.5-5.1)
[2017-11-04] MEDS: LEVOTHYROXINE 100 MCG TABLET PO SCH (06:21)
[2017-11-04 06:56] LABS: Troponin I Only < 0.015 NG/ML (0.00-0.045)
[2017-11-04] MEDS ORDERED: CLORAZEPATE 3.75 MG TABLET ONE (07:41)
[2017-11-04] MEDS: INSULIN REGULAR 100 UNIT/ML SUBCUT SCH ×4 (08:24→21:05)
[2017-11-04] MEDS ORDERED: GLUCAGON 1 MG VIAL IM PRN (09:01)
[2017-11-04] MEDS ORDERED: DEXTROSE 50% 25 GM/50 ML VIAL IV PRN (09:01)
[2017-11-04] MEDS: ASPIRIN CHEW 81 MG TABLET PO SCH (09:16)
[2017-11-04] MEDS: MAGNESIUM CHLORIDE 64 MG TABLET PO SCH ×2 (09:16→21:04)
[2017-11-04] MEDS: CLORAZEPATE 3.75 MG TABLET PO SCH ×2 (09:20→21:04)
[2017-11-04] MEDS: SERTRALINE 50 MG TABLET PO SCH (09:20)
[2017-11-04] MEDS ORDERED: SIMETHICONE CHEW 125 MG TABLET PO PRN (11:52)
[2017-11-04] MEDS: MORPHINE 2 MG/1 ML SYRINGE IV PRN ×2 (14:03→22:48)
[2017-11-04] MEDS: ONDANSETRON 4 MG/2 ML VIAL IV PRN ×2 (14:06→22:47)
[2017-11-04] MEDS: ISOSORBIDE MONONITRATE 30 MG TABLET PO SCH (15:31)
[2017-11-04] MEDS: ENOXAPARIN 30 MG/0.3 ML SYRINGE SUBCUT SCH (15:32)
[2017-11-04] MEDS: FAMOTIDINE 20 MG/2 ML VIAL IV SCH (15:33)
[2017-11-04] MEDS: hydrALAZINE 25 MG TABLET PO SCH ×2 (15:53→21:04)
[2017-11-05 04:33] LABS: Basophils # 0.1 10*3/uL (0.0-0.2); Basophils % 0.7 % (0.0-0.8); Eosinophils # 0.1 10*3/uL (0.0-0.87); Eosinophils % 1.3 % (0.00-10.9); Hematocrit 27.9 VOL% (35.7-47.0); Hemoglobin 9.7 GM/DL (12.0-16.0); Immature Granulocytes % 0.3 %; Immature Granulocytes Absolute 0.02 #; Lymphocytes # 2.2 10*3/uL (1.4-4.0); Lymphocytes % 29.2 % (21.3-54.2); Mean Corpuscular HGB Conc 34.8 GM/DL (32-36); Mean Corpuscular Hemoglobin 29 PG (27-34); Mean Corpuscular Volume 84.3 FL (87-102); Mean Platelet Volume 11.5 FL (9.6-12.0); Monocytes # 0.8 10*3/uL (0.11-0.8); Monocytes % 10.7 % (1.7-12.7); Neutrophils # 4.3 10*3/uL (1.4-7.4); Neutrophils % 57.8 % (38.7-73.9); Platelet Count 166 T/CUMM (130-400); Red Blood Count 3.31 MC/CUMM (3.8-5.5); Red Cell Distribution Width 13.3 % (9.3-17.3); White Blood Count 7.5 T/CUMM (4-12)
[2017-11-05 05:02] LABS: Calcium 7.9 MG/DL (8.5-10.1); Magnesium 2.1 MG/DL (1.8-2.4); Osmolality,Calculated 260.2 MOS/KG (273-304); Potassium 3.9 MMOL/L (3.5-5.1)
[2017-11-05] MEDS: LEVOTHYROXINE 100 MCG TABLET PO SCH (06:35)
[2017-11-05] MEDS: SODIUM CHLORIDE 0.9% 1,000 ML IV SCH ×3 (06:37→20:37)
[2017-11-05] MEDS: INSULIN REGULAR 100 UNIT/ML SUBCUT SCH ×4 (08:59→21:27)
[2017-11-05] MEDS: diphenhydrAMINE CAP 25 MG CAPSULE PO PRN (09:00)
[2017-11-05] MEDS: CLORAZEPATE 3.75 MG TABLET PO SCH ×2 (09:00→21:27)
[2017-11-05] MEDS: MAGNESIUM CHLORIDE 64 MG TABLET PO SCH ×2 (09:00→21:27)
[2017-11-05] MEDS: ISOSORBIDE MONONITRATE 30 MG TABLET PO SCH (09:01)
[2017-11-05] MEDS: SERTRALINE 50 MG TABLET PO SCH (09:01)
[2017-11-05] MEDS: hydrALAZINE 25 MG TABLET PO SCH ×3 (09:01→21:27)
[2017-11-05] MEDS: ASPIRIN CHEW 81 MG TABLET PO SCH (09:01)
[2017-11-05] MEDS: ALBUTEROL/IPRATROPIUM 3 ML NEB RESP TX SCH ×2 (12:07→19:10)
[2017-11-05] MEDS: FAMOTIDINE 20 MG/2 ML VIAL IV SCH (14:58)
[2017-11-05] MEDS: ENOXAPARIN 30 MG/0.3 ML SYRINGE SUBCUT SCH (14:58)
[2017-11-06] MEDS: ALBUTEROL/IPRATROPIUM 3 ML NEB RESP TX SCH ×4 (00:08→19:24)
[2017-11-06] MEDS: LEVOTHYROXINE 100 MCG TABLET PO SCH (06:06)
[2017-11-06] MEDS: SODIUM CHLORIDE 0.9% 1,000 ML IV SCH ×2 (06:09→15:49)
[2017-11-06] MEDS: INSULIN REGULAR 100 UNIT/ML SUBCUT SCH ×4 (08:35→21:34)
[2017-11-06] MEDS: ASPIRIN CHEW 81 MG TABLET PO SCH (10:46)
[2017-11-06] MEDS: CLORAZEPATE 3.75 MG TABLET PO SCH ×2 (10:46→21:01)
[2017-11-06] MEDS: SERTRALINE 50 MG TABLET PO SCH (10:46)
[2017-11-06] MEDS: MAGNESIUM CHLORIDE 64 MG TABLET PO SCH ×2 (10:46→21:01)
[2017-11-06] MEDS: hydrALAZINE 25 MG TABLET PO SCH ×3 (10:47→21:01)
[2017-11-06] MEDS: ISOSORBIDE MONONITRATE 30 MG TABLET PO SCH (10:56)
[2017-11-06] MEDS: ACETAMINOPHEN 325 MG TABLET PO PRN (11:10)
[2017-11-06] MEDS: FAMOTIDINE 20 MG/2 ML VIAL IV SCH (15:20)
[2017-11-06] MEDS: ENOXAPARIN 30 MG/0.3 ML SYRINGE SUBCUT SCH (15:29)
[2017-11-06] MEDS: diphenhydrAMINE CAP 25 MG CAPSULE PO PRN (15:38)
[2017-11-06] MEDS: MORPHINE 2 MG/1 ML SYRINGE IV PRN (15:38)
[2017-11-07] MEDS: ALBUTEROL/IPRATROPIUM 3 ML NEB RESP TX SCH ×4 (01:15→20:03)
[2017-11-07] MEDS: SODIUM CHLORIDE 0.9% 1,000 ML IV SCH ×2 (05:44→18:20)
[2017-11-07] MEDS: LEVOTHYROXINE 100 MCG TABLET PO SCH (06:01)
[2017-11-07 06:58] LABS: Magnesium 2.2 MG/DL (1.8-2.4); Osmolality,Calculated 274.1 MOS/KG (273-304); Potassium 4.3 MMOL/L (3.5-5.1)
[2017-11-07] MEDS: INSULIN REGULAR 100 UNIT/ML SUBCUT SCH ×4 (07:40→21:03)
[2017-11-07] MEDS: MAGNESIUM CHLORIDE 64 MG TABLET PO SCH ×2 (09:07→20:59)
[2017-11-07] MEDS: CLORAZEPATE 3.75 MG TABLET PO SCH ×2 (09:07→20:59)
[2017-11-07] MEDS: ISOSORBIDE MONONITRATE 30 MG TABLET PO SCH (09:07)
[2017-11-07] MEDS: SERTRALINE 50 MG TABLET PO SCH (09:08)
[2017-11-07] MEDS: ASPIRIN CHEW 81 MG TABLET PO SCH (09:09)
[2017-11-07] MEDS: hydrALAZINE 25 MG TABLET PO SCH ×3 (09:20→21:00)
[2017-11-07] MEDS: FAMOTIDINE 20 MG/2 ML VIAL IV SCH (14:12)
[2017-11-07] MEDS: ENOXAPARIN 30 MG/0.3 ML SYRINGE SUBCUT SCH (14:15)
[2017-11-07] MEDS: diphenhydrAMINE CAP 25 MG CAPSULE PO PRN (16:55)
[2017-11-07 18:07] LABS: Apearance,Urine CLOUDY (Clear); Bacteria,Urine Many /HPF (Few); Bilirubin,Urine Negative (Negative); Blood, Urine Moderate mg/dL (Negative); Glucose,Urine (UA) Negative (Negative); Ketones,Urine Negative (Negative); Nitrite,Urine Negative (Negative); Protein,Urine 100 MG/DL; RBC,Urine 30 /HPF (0-4); Urine Color Yellow (Yellow); Urine Specific Gravity 1.005 (1.001-1.035); Urine Urobilinogen < 2.0 EU/DL (0.2-1.0); WBC,Urine 892 /HPF (0-6)
[2017-11-07] MEDS: DOCUSATE SODIUM 100 MG CAPSULE PO PRN (21:00)
[2017-11-08] MEDS: ALBUTEROL/IPRATROPIUM 3 ML NEB RESP TX SCH ×4 (01:22→20:10)
[2017-11-08] MEDS: LEVOTHYROXINE 100 MCG TABLET PO SCH (06:22)
[2017-11-08 06:59] LABS: Basophils # 0.1 10*3/uL (0.0-0.2); Basophils % 0.6 % (0.0-0.8); Eosinophils # 0.1 10*3/uL (0.0-0.87); Hematocrit 25.8 VOL% (35.7-47.0); Hemoglobin 8.7 GM/DL (12.0-16.0); Immature Granulocytes % 0.4 %; Immature Granulocytes Absolute 0.04 #; Lymphocytes # 2.7 10*3/uL (1.4-4.0); Lymphocytes % 25.3 % (21.3-54.2); Mean Corpuscular HGB Conc 33.7 GM/DL (32-36); Mean Corpuscular Hemoglobin 29 PG (27-34); Mean Corpuscular Volume 86.9 FL (87-102); Mean Platelet Volume 10.5 FL (9.6-12.0); Monocytes % 9.5 % (1.7-12.7); Neutrophils # 6.8 10*3/uL (1.4-7.4); Neutrophils % 63.2 % (38.7-73.9); Platelet Count 143 T/CUMM (130-400); Red Blood Count 2.97 MC/CUMM (3.8-5.5); Red Cell Distribution Width 14.1 % (9.3-17.3); White Blood Count 10.8 T/CUMM (4-12)
[2017-11-08 07:33] LABS: Calcium 8.3 MG/DL (8.5-10.1); Magnesium 2.2 MG/DL (1.8-2.4); Potassium 4.3 MMOL/L (3.5-5.1)
[2017-11-08] MEDS ORDERED: MAGNESIUM HYDROXIDE SUSP 30 ML UDCUP PO ONE (07:53)
[2017-11-08] MEDS ORDERED: SODIUM CHLORIDE 0.9% 1,000 ML IV PRN ×3 (07:56→16:44)
[2017-11-08] MEDS: ONDANSETRON 4 MG/2 ML VIAL IV PRN (08:03)
[2017-11-08] MEDS: CLORAZEPATE 3.75 MG TABLET PO SCH ×2 (09:36→20:47)
[2017-11-08] MEDS: ASPIRIN CHEW 81 MG TABLET PO SCH (09:37)
[2017-11-08] MEDS: hydrALAZINE 25 MG TABLET PO SCH ×3 (09:37→20:48)
[2017-11-08] MEDS: MAGNESIUM CHLORIDE 64 MG TABLET PO SCH ×2 (09:37→20:48)
[2017-11-08] MEDS: ISOSORBIDE MONONITRATE 30 MG TABLET PO SCH (09:37)
[2017-11-08] MEDS: ACETAMINOPHEN 325 MG TABLET PO PRN (09:37)
[2017-11-08] MEDS: SERTRALINE 50 MG TABLET PO SCH (09:37)
[2017-11-08] MEDS: DOCUSATE SODIUM 100 MG CAPSULE PO PRN (09:37)
[2017-11-08] MEDS: INSULIN REGULAR 100 UNIT/ML SUBCUT SCH ×4 (09:38→20:48)
[2017-11-08] MEDS: SODIUM CHLORIDE 0.9% 1,000 ML IV SCH (09:38)
[2017-11-08] MEDS ORDERED: LEVOFLOXACIN INJ 500 MG in PREMIX 1 EACH IV ONE (12:30)
[2017-11-08] MEDS: FAMOTIDINE 20 MG/2 ML VIAL IV SCH (15:56)
[2017-11-08] MEDS ORDERED: ASPIRIN 325 MG TABLET ONE (16:57)
[2017-11-08] MEDS: NITROGLYCERIN SL 0.4 MG TABLET SL PRN ×2 (16:57→17:08)
[2017-11-08] MEDS ORDERED: ASPIRIN CHEW 81 MG TABLET PO ONE (16:58)
[2017-11-08] MEDS ORDERED: FUROSEMIDE 20 MG/2 ML VIAL IV ONE (19:00)
[2017-11-08] MEDS: ENOXAPARIN 40 MG/0.4 ML SYRINGE SUBCUT SCH (20:48)
[2017-11-09] MEDS: ALBUTEROL/IPRATROPIUM 3 ML NEB RESP TX SCH ×4 (00:12→19:41)
[2017-11-09] MEDS ORDERED: cloNIDine 0.1 MG TABLET PO PRN (01:00)
[2017-11-09 01:46] LABS: Troponin I Only 0.096 NG/ML (0.00-0.045)
[2017-11-09] MEDS: SODIUM CHLORIDE 0.9% 1,000 ML IV SCH ×2 (06:32→10:58)
[2017-11-09] MEDS: INSULIN REGULAR 100 UNIT/ML SUBCUT SCH ×4 (08:27→21:11)
[2017-11-09 08:35] LABS: Basophils # 0.1 10*3/uL (0.0-0.2); Basophils % 0.5 % (0.0-0.8); Eosinophils # 0.2 10*3/uL (0.0-0.87); Eosinophils % 1.9 % (0.00-10.9); Hematocrit 26.7 VOL% (35.7-47.0); Hemoglobin 9.1 GM/DL (12.0-16.0); Immature Granulocytes % 0.4 %; Immature Granulocytes Absolute 0.04 #; Lymphocytes % 20.6 % (21.3-54.2); Mean Corpuscular HGB Conc 34.1 GM/DL (32-36); Mean Corpuscular Hemoglobin 29 PG (27-34); Mean Corpuscular Volume 86.4 FL (87-102); Mean Platelet Volume 10.3 FL (9.6-12.0); Monocytes % 10.7 % (1.7-12.7); Neutrophils # 6.3 10*3/uL (1.4-7.4); Neutrophils % 65.9 % (38.7-73.9); Platelet Count 137 T/CUMM (130-400); Red Blood Count 3.09 MC/CUMM (3.8-5.5); Red Cell Distribution Width 14.3 % (9.3-17.3); White Blood Count 9.5 T/CUMM (4-12)
[2017-11-09] MEDS: LEVOTHYROXINE 100 MCG TABLET PO SCH (08:35)
[2017-11-09] MEDS: FUROSEMIDE 20 MG/2 ML VIAL IV SCH (08:35)
[2017-11-09] MEDS: ASPIRIN CHEW 81 MG TABLET PO SCH (08:36)
[2017-11-09] MEDS: ISOSORBIDE MONONITRATE 30 MG TABLET PO SCH ×2 (08:37→11:15)
[2017-11-09] MEDS: MAGNESIUM CHLORIDE 64 MG TABLET PO SCH ×2 (08:37→21:11)
[2017-11-09] MEDS: hydrALAZINE 25 MG TABLET PO SCH (08:37)
[2017-11-09] MEDS: SERTRALINE 50 MG TABLET PO SCH (08:53)
[2017-11-09 09:09] LABS: Magnesium 2.2 MG/DL (1.8-2.4); Osmolality,Calculated 268.4 MOS/KG (273-304); Potassium 4.6 MMOL/L (3.5-5.1)
[2017-11-09] MEDS: LEVOFLOXACIN INJ 250 MG in PREMIX 1 EACH IV SCH (11:07)
[2017-11-09] MEDS: CLORAZEPATE 3.75 MG TABLET PO SCH ×2 (11:09→21:11)
[2017-11-09] MEDS ORDERED: REGADENOSON 0.4 MG/5 ML SYRINGE IV ONE (13:24)
[2017-11-09] MEDS: FAMOTIDINE 20 MG/2 ML VIAL IV SCH (14:55)
[2017-11-09] MEDS: ALUMINUM/MAGNES/SIMETH MAX STR 30 ML UDCUP PO PRN (15:36)
[2017-11-09] MEDS: ENOXAPARIN 40 MG/0.4 ML SYRINGE SUBCUT SCH (21:11)
[2017-11-09] MEDS: DOCUSATE SODIUM 100 MG CAPSULE PO PRN (21:11)
[2017-11-09 21:25] LABS: Troponin I Only 0.039 NG/ML (0.00-0.045)
[2017-11-10] MEDS: ALBUTEROL/IPRATROPIUM 3 ML NEB RESP TX SCH ×4 (00:02→19:40)
[2017-11-10 05:36] LABS: Basophils # 0.1 10*3/uL (0.0-0.2); Basophils % 0.6 % (0.0-0.8); Eosinophils # 0.3 10*3/uL (0.0-0.87); Eosinophils % 3.2 % (0.00-10.9); Hematocrit 26.3 VOL% (35.7-47.0); Hemoglobin 8.9 GM/DL (12.0-16.0); Immature Granulocytes % 0.4 %; Immature Granulocytes Absolute 0.03 #; Lymphocytes # 2.2 10*3/uL (1.4-4.0); Mean Corpuscular HGB Conc 33.8 GM/DL (32-36); Mean Corpuscular Hemoglobin 30 PG (27-34); Mean Corpuscular Volume 87.1 FL (87-102); Mean Platelet Volume 10.8 FL (9.6-12.0); Monocytes % 12.6 % (1.7-12.7); Neutrophils # 4.5 10*3/uL (1.4-7.4); Neutrophils % 56.2 % (38.7-73.9); Platelet Count 150 T/CUMM (130-400); Red Blood Count 3.02 MC/CUMM (3.8-5.5); Red Cell Distribution Width 14.2 % (9.3-17.3); White Blood Count 8.1 T/CUMM (4-12)
[2017-11-10 05:57] LABS: Calcium 8.6 MG/DL (8.5-10.1); Magnesium 2.4 MG/DL (1.8-2.4); Potassium 4.5 MMOL/L (3.5-5.1)
[2017-11-10] MEDS: LEVOTHYROXINE 100 MCG TABLET PO SCH (06:07)
[2017-11-10] MEDS ORDERED: SODIUM CHLORIDE 0.9% 1,000 ML IV PRN (08:22)
[2017-11-10] MEDS: INSULIN REGULAR 100 UNIT/ML SUBCUT SCH ×4 (08:27→20:24)
[2017-11-10] MEDS: FUROSEMIDE 20 MG/2 ML VIAL IV SCH (08:47)
[2017-11-10] MEDS: SERTRALINE 50 MG TABLET PO SCH (08:48)
[2017-11-10] MEDS: CLORAZEPATE 3.75 MG TABLET PO SCH ×2 (08:48→20:31)
[2017-11-10] MEDS: LEVOFLOXACIN INJ 250 MG in PREMIX 1 EACH IV SCH (08:48)
[2017-11-10] MEDS: ASPIRIN CHEW 81 MG TABLET PO SCH (08:48)
[2017-11-10] MEDS: ISOSORBIDE MONONITRATE 30 MG TABLET PO SCH (08:48)
[2017-11-10] MEDS: MAGNESIUM CHLORIDE 64 MG TABLET PO SCH ×2 (08:48→20:31)
[2017-11-10] MEDS: ALUMINUM/MAGNES/SIMETH MAX STR 30 ML UDCUP PO PRN ×2 (08:52→17:51)
[2017-11-10] MEDS: ACETAMINOPHEN 325 MG TABLET PO PRN ×2 (10:01→15:55)
[2017-11-10] MEDS: SODIUM CHLORIDE 0.9% 1,000 ML IV SCH (10:46)
[2017-11-10] MEDS: FAMOTIDINE 20 MG/2 ML VIAL IV SCH (15:56)
[2017-11-10] MEDS: ENOXAPARIN 40 MG/0.4 ML SYRINGE SUBCUT SCH (20:31)
[2017-11-10] MEDS: diphenhydrAMINE CAP 25 MG CAPSULE PO PRN (20:33)
[2017-11-11 05:16] LABS: Basophils # 0.1 10*3/uL (0.0-0.2); Basophils % 0.7 % (0.0-0.8); Eosinophils # 0.4 10*3/uL (0.0-0.87); Eosinophils % 5.7 % (0.00-10.9); Hematocrit 26.9 VOL% (35.7-47.0); Hemoglobin 9.2 GM/DL (12.0-16.0); Immature Granulocytes % 0.3 %; Immature Granulocytes Absolute 0.02 #; Lymphocytes # 1.9 10*3/uL (1.4-4.0); Lymphocytes % 26.4 % (21.3-54.2); Mean Corpuscular HGB Conc 34.2 GM/DL (32-36); Mean Corpuscular Hemoglobin 29 PG (27-34); Mean Corpuscular Volume 85.7 FL (87-102); Mean Platelet Volume 10.6 FL (9.6-12.0); Monocytes % 13.5 % (1.7-12.7); Neutrophils # 3.9 10*3/uL (1.4-7.4); Neutrophils % 53.4 % (38.7-73.9); Platelet Count 151 T/CUMM (130-400); Red Blood Count 3.14 MC/CUMM (3.8-5.5); Red Cell Distribution Width 14.9 % (9.3-17.3); White Blood Count 7.2 T/CUMM (4-12)
[2017-11-11 05:39] LABS: Calcium 8.3 MG/DL (8.5-10.1); Magnesium 2.3 MG/DL (1.8-2.4); Osmolality,Calculated 268.4 MOS/KG (273-304); Potassium 4.5 MMOL/L (3.5-5.1)
[2017-11-11] MEDS: ALBUTEROL/IPRATROPIUM 3 ML NEB RESP TX SCH ×2 (06:27→08:22)
[2017-11-11] MEDS: LEVOTHYROXINE 100 MCG TABLET PO SCH (06:46)
[2017-11-11] MEDS: INSULIN REGULAR 100 UNIT/ML SUBCUT SCH ×2 (08:16→14:01)
[2017-11-11 08:31] VITALS: BP 192/76
[2017-11-11] MEDS ORDERED: FUROSEMIDE 40 MG TABLET PO SCH (09:00)
[2017-11-11] MEDS: LEVOFLOXACIN INJ 250 MG in PREMIX 1 EACH IV SCH (09:11)
[2017-11-11] MEDS: ISOSORBIDE MONONITRATE 30 MG TABLET PO SCH (09:12)
[2017-11-11] MEDS: MAGNESIUM CHLORIDE 64 MG TABLET PO SCH (09:12)
[2017-11-11] MEDS: ASPIRIN CHEW 81 MG TABLET PO SCH (09:12)
[2017-11-11] MEDS: CLORAZEPATE 3.75 MG TABLET PO SCH (09:12)
[2017-11-11] MEDS: SERTRALINE 50 MG TABLET PO SCH (09:12)
[2017-11-11] MEDS: SODIUM CHLORIDE 0.9% 1,000 ML IV SCH (09:30)
== END 2017-11-11 13:50 | disposition swing bed (61) | DRG 641 ==
LOC: N.2E → N.ICU 13:10 → SUPCPDRO 11-04 08:10 → N.2E 11-05 15:40 → N.TELEN 11-08 17:26
PROVIDERS: ADMIT Family Medicine; ATTEND Family Medicine

== ENCOUNTER 2018-07-02 04:42 | Observation (INO) ==
[2018-07-02] MEDS ORDERED: ONDANSETRON 4 MG/2 ML VIAL IV STA (06:07)
[2018-07-02] MEDS ORDERED: MORPHINE 4 MG/1 ML VIAL IV STA (06:07)
[2018-07-02] MEDS ORDERED: ASPIRIN 325 MG TABLET PO STA (06:07)
[2018-07-02] MEDS ORDERED: NITROGLYCERIN 2% OINT 1 INCH/GM PACK TOP STA (06:07)
[2018-07-02 06:48] LABS: Basophils # 0.1 10*3/uL (0.0-0.2); Basophils % 0.7 % (0.0-0.8); Eosinophils # 0.1 10*3/uL (0.0-0.87); Eosinophils % 0.8 % (0.00-10.9); Hematocrit 28.5 VOL% (35.7-47.0); Hemoglobin 9.4 GM/DL (12.0-16.0); Immature Granulocytes % 0.6 %; Immature Granulocytes Absolute 0.05 #; Lymphocytes # 1.3 10*3/uL (1.4-4.0); Lymphocytes % 15.8 % (21.3-54.2); Mean Corpuscular Hemoglobin 27 PG (27-34); Mean Platelet Volume 9.9 FL (9.6-12.0); Monocytes # 0.7 10*3/uL (0.11-0.8); Monocytes % 8.4 % (1.7-12.7); Neutrophils # 6.2 10*3/uL (1.4-7.4); Neutrophils % 73.7 % (38.7-73.9); Platelet Count 321 T/CUMM (130-400); Red Blood Count 3.52 MC/CUMM (3.8-5.5); Red Cell Distribution Width 15.9 % (9.3-17.3); White Blood Count 8.4 T/CUMM (4-12)
[2018-07-02 07:02] LABS: Albumin 3.4 G/DL (3.4-5.0); Apearance,Urine CLEAR (Clear); Bacteria,Urine Occasional /HPF (Few); Bilirubin,Total 0.5 MG/DL (0.2-1.0); Bilirubin,Urine Negative (Negative); Blood, Urine Negative (Negative); Calcium 8.9 MG/DL (8.5-10.1); Glucose,Urine (UA) Negative (Negative); Ketones,Urine Negative (Negative); Nitrite,Urine Negative (Negative); Osmolality,Calculated 258.5 MOS/KG (273-304); Potassium 3.3 MMOL/L (3.5-5.1); Protein,Urine 100 MG/DL; RBC,Urine 3 /HPF (0-4); Squamous Epithelial Cell,Urine Occasional /HPF (0-10); Total Protein 8.1 G/DL (6.4-8.3); Urine Color Straw (Yellow); Urine Specific Gravity 1.006 (1.001-1.035); Urine Urobilinogen < 2.0 EU/DL (0.2-1.0); WBC,Urine 8 /HPF (0-6)
[2018-07-02] MEDS ORDERED: LEVOFLOXACIN INJ 500 MG in PREMIX 1 EACH IV STA (08:08)
[2018-07-02] MEDS ORDERED: ACETAMINOPHEN 325 MG TABLET PO PRN (08:09)
[2018-07-02] MEDS ORDERED: MORPHINE 4 MG/1 ML VIAL IV PRN (08:09)
[2018-07-02] MEDS ORDERED: NITROGLYCERIN SL 0.4 MG TABLET SL PRN (08:11)
[2018-07-02] MEDS ORDERED: SODIUM CHLORIDE 0.45% 1,000 ML IV SCH (08:30)
[2018-07-02] MEDS ORDERED: DONEPEZIL 10 MG TABLET PO SCH (09:00)
[2018-07-02] MEDS ORDERED: FUROSEMIDE 40 MG TABLET PO SCH (09:00)
[2018-07-02] MEDS ORDERED: ALUM/MAG/SIMETH/LIDO VISC 1:1 30 ML BOTTLE PO ONE ×2 (10:34)
[2018-07-02] MEDS: ENOXAPARIN 30 MG/0.3 ML SYRINGE SUBCUT SCH (11:48)
[2018-07-02] MEDS: CHOLECALCIFEROL 1,000 UNIT TABLET PO SCH (11:49)
[2018-07-02] MEDS: MEMANTINE 10 MG TABLET PO SCH ×2 (11:49→21:26)
[2018-07-02] MEDS: PANTOPRAZOLE 40 MG TABLET PO SCH (11:49)
[2018-07-02] MEDS: DOCUSATE SODIUM 100 MG CAPSULE PO SCH ×2 (11:49→21:27)
[2018-07-02] MEDS: IRON (CARBONYL)/VIT C/B12/FA TABLET PO SCH (11:49)
[2018-07-02] MEDS: LEVOTHYROXINE 100 MCG TABLET PO SCH (11:49)
[2018-07-02] MEDS: SERTRALINE 100 MG TABLET PO SCH (11:50)
[2018-07-02] MEDS ORDERED: FUROSEMIDE 20 MG/2 ML VIAL IV ONE (14:04)
[2018-07-02] MEDS: NITROGLYCERIN 2% OINT 1 INCH/GM PACK TOP SCH ×2 (14:17→19:09)
[2018-07-02] MEDS: ALUMINUM/MAGNES/SIMETH MAX STR 30 ML UDCUP PO SCH ×2 (14:42→21:27)
[2018-07-02] MEDS: traMADol 50 MG TABLET PO PRN (14:43)
[2018-07-03 04:58] LABS: Basophils # 0.1 10*3/uL (0.0-0.2); Basophils % 1.1 % (0.0-0.8); Eosinophils # 0.2 10*3/uL (0.0-0.87); Eosinophils % 2.9 % (0.00-10.9); Hematocrit 28.6 VOL% (35.7-47.0); Hemoglobin 9.1 GM/DL (12.0-16.0); Immature Granulocytes % 0.5 %; Immature Granulocytes Absolute 0.04 #; Lymphocytes # 2.1 10*3/uL (1.4-4.0); Lymphocytes % 25.5 % (21.3-54.2); Mean Corpuscular HGB Conc 31.8 GM/DL (32-36); Mean Corpuscular Hemoglobin 27 PG (27-34); Mean Corpuscular Volume 84.6 FL (87-102); Mean Platelet Volume 9.6 FL (9.6-12.0); Monocytes # 1.1 10*3/uL (0.11-0.8); Monocytes % 13.1 % (1.7-12.7); Neutrophils # 4.7 10*3/uL (1.4-7.4); Neutrophils % 56.9 % (38.7-73.9); Platelet Count 307 T/CUMM (130-400); Red Blood Count 3.38 MC/CUMM (3.8-5.5); Red Cell Distribution Width 15.9 % (9.3-17.3); White Blood Count 8.3 T/CUMM (4-12)
[2018-07-03 05:33] LABS: Calcium 8.4 MG/DL (8.5-10.1); Osmolality,Calculated 264.1 MOS/KG (273-304); Potassium 3.5 MMOL/L (3.5-5.1)
[2018-07-03] MEDS: NITROGLYCERIN 2% OINT 1 INCH/GM PACK TOP SCH ×2 (05:46→09:42)
[2018-07-03] MEDS: ALUMINUM/MAGNES/SIMETH MAX STR 30 ML UDCUP PO SCH ×2 (09:16→21:19)
[2018-07-03] MEDS: PANTOPRAZOLE 40 MG TABLET PO SCH (09:18)
[2018-07-03] MEDS: DOCUSATE SODIUM 100 MG CAPSULE PO SCH ×2 (09:18→21:18)
[2018-07-03] MEDS: CHOLECALCIFEROL 1,000 UNIT TABLET PO SCH (09:19)
[2018-07-03] MEDS: SERTRALINE 100 MG TABLET PO SCH (09:19)
[2018-07-03] MEDS: FUROSEMIDE 20 MG TABLET PO SCH ×2 (09:20→16:03)
[2018-07-03] MEDS: ASPIRIN EC 81 MG TABLET PO SCH (09:20)
[2018-07-03] MEDS: traMADol 50 MG TABLET PO PRN (09:21)
[2018-07-03] MEDS: MEMANTINE 10 MG TABLET PO SCH ×2 (09:21→21:18)
[2018-07-03] MEDS: ENOXAPARIN 30 MG/0.3 ML SYRINGE SUBCUT SCH (09:22)
[2018-07-03] MEDS: LEVOFLOXACIN INJ 250 MG in PREMIX 1 EACH IV SCH (09:22)
[2018-07-03] MEDS: LEVOTHYROXINE 100 MCG TABLET PO SCH (09:41)
[2018-07-03] MEDS: traZODone 50 MG TABLET PO PRN ×2 (21:18)
[2018-07-03] MEDS: POTASSIUM CHLORIDE 20 MEQ TABLET PO SCH (21:18)
[2018-07-03] MEDS ORDERED: diphenhydrAMINE 25 MG/10 ML UDCUP PO PRN ×2 (21:31→21:50)
[2018-07-04] MEDS: LEVOTHYROXINE 100 MCG TABLET PO SCH (06:37)
[2018-07-04] MEDS: MEMANTINE 10 MG TABLET PO SCH ×2 (09:49→21:08)
[2018-07-04] MEDS: ISOSORBIDE MONONITRATE 30 MG TABLET PO SCH (09:49)
[2018-07-04] MEDS: FUROSEMIDE 20 MG TABLET PO SCH ×2 (09:49→16:12)
[2018-07-04] MEDS: PANTOPRAZOLE 40 MG TABLET PO SCH ×2 (09:50→21:08)
[2018-07-04] MEDS: IRON (CARBONYL)/VIT C/B12/FA TABLET PO SCH (09:50)
[2018-07-04] MEDS: POTASSIUM CHLORIDE 20 MEQ TABLET PO SCH ×2 (09:50→21:08)
[2018-07-04] MEDS: CHOLECALCIFEROL 1,000 UNIT TABLET PO SCH (09:51)
[2018-07-04] MEDS: DOCUSATE SODIUM 100 MG CAPSULE PO SCH ×2 (09:51→21:08)
[2018-07-04] MEDS: ASPIRIN EC 81 MG TABLET PO SCH (09:51)
[2018-07-04] MEDS: ENOXAPARIN 30 MG/0.3 ML SYRINGE SUBCUT SCH (09:53)
[2018-07-04] MEDS: LEVOFLOXACIN INJ 250 MG in PREMIX 1 EACH IV SCH (10:01)
[2018-07-04] MEDS: ALUMINUM/MAGNES/SIMETH MAX STR 30 ML UDCUP PO SCH ×2 (10:02→21:08)
[2018-07-04] MEDS: ONDANSETRON 4 MG/2 ML VIAL IV PRN (21:07)
[2018-07-04] MEDS: POLYETHYLENE GLYCOL POWDER 17 GM PACK PO SCH (21:07)
[2018-07-04] MEDS: traMADol 50 MG TABLET PO PRN (21:08)
[2018-07-05] MEDS: LEVOTHYROXINE 100 MCG TABLET PO SCH (05:47)
[2018-07-05 09:11] LABS: Basophils # 0.1 10*3/uL (0.0-0.2); Basophils % 0.8 % (0.0-0.8); Eosinophils # 0.3 10*3/uL (0.0-0.87); Eosinophils % 3.5 % (0.00-10.9); Hematocrit 25.1 VOL% (35.7-47.0); Immature Granulocytes % 0.4 %; Immature Granulocytes Absolute 0.03 #; Lymphocytes # 1.5 10*3/uL (1.4-4.0); Lymphocytes % 20.7 % (21.3-54.2); Mean Corpuscular HGB Conc 31.9 GM/DL (32-36); Mean Corpuscular Hemoglobin 27 PG (27-34); Mean Corpuscular Volume 84.2 FL (87-102); Mean Platelet Volume 9.6 FL (9.6-12.0); Monocytes # 0.9 10*3/uL (0.11-0.8); Monocytes % 11.6 % (1.7-12.7); Neutrophils # 4.6 10*3/uL (1.4-7.4); Platelet Count 263 T/CUMM (130-400); Red Blood Count 2.98 MC/CUMM (3.8-5.5); White Blood Count 7.3 T/CUMM (4-12)
[2018-07-05 09:38] LABS: Alanine Aminotransferase 21 U/L (13-56); Albumin 2.6 G/DL (3.4-5.0); Alkaline Phosphatase 191 U/L (45-117); Aspartate Amino Transferase 39 U/L (0-37); Bilirubin,Total < 0.39 MG/DL (0.2-1.0); Blood Urea Nitrogen 40 MG/DL (7-18); Calcium 8.5 MG/DL (8.5-10.1); Glucose 76 MG/DL (74-106); Osmolality,Calculated 266.9 MOS/KG (273-304); Potassium 4.3 MMOL/L (3.5-5.1); Sodium 129 MMOL/L (136-145); Total Protein 6.7 G/DL (6.4-8.3)
[2018-07-05] MEDS: ONDANSETRON 4 MG/2 ML VIAL IV PRN (10:19)
[2018-07-05] MEDS: traMADol 50 MG TABLET PO PRN (10:33)
[2018-07-05] MEDS: ALUMINUM/MAGNES/SIMETH MAX STR 30 ML UDCUP PO SCH ×2 (10:35→21:09)
[2018-07-05] MEDS: PANTOPRAZOLE 40 MG TABLET PO SCH ×2 (10:35→21:09)
[2018-07-05] MEDS: LEVOFLOXACIN INJ 250 MG in PREMIX 1 EACH IV SCH (10:38)
[2018-07-05] MEDS ORDERED: FUROSEMIDE 40 MG/4 ML VIAL IV ONE (10:53)
[2018-07-05] MEDS ORDERED: SODIUM CHLORIDE 0.9% 1,000 ML IV PRN (11:03)
[2018-07-05] MEDS: POLYETHYLENE GLYCOL POWDER 17 GM PACK PO SCH ×2 (12:07→21:09)
[2018-07-05] MEDS: FUROSEMIDE 20 MG TABLET PO SCH ×2 (12:08→17:30)
[2018-07-05] MEDS: ISOSORBIDE MONONITRATE 30 MG TABLET PO SCH (12:08)
[2018-07-05] MEDS: POTASSIUM CHLORIDE 20 MEQ TABLET PO SCH ×2 (12:08→21:09)
[2018-07-05] MEDS: MEMANTINE 10 MG TABLET PO SCH ×2 (12:08→21:09)
[2018-07-05] MEDS: DOCUSATE SODIUM 100 MG CAPSULE PO SCH ×2 (12:08→21:09)
[2018-07-05] MEDS: CHOLECALCIFEROL 1,000 UNIT TABLET PO SCH (12:09)
[2018-07-06 05:16] LABS: Basophils # 0.1 10*3/uL (0.0-0.2); Basophils % 0.8 % (0.0-0.8); Eosinophils # 0.3 10*3/uL (0.0-0.87); Eosinophils % 3.5 % (0.00-10.9); Hematocrit 31.3 VOL% (35.7-47.0); Hemoglobin 10.3 GM/DL (12.0-16.0); Immature Granulocytes % 0.3 %; Immature Granulocytes Absolute 0.02 #; Lymphocytes # 1.9 10*3/uL (1.4-4.0); Lymphocytes % 26.4 % (21.3-54.2); Mean Corpuscular HGB Conc 32.9 GM/DL (32-36); Mean Corpuscular Hemoglobin 27 PG (27-34); Mean Platelet Volume 10.1 FL (9.6-12.0); Monocytes # 0.8 10*3/uL (0.11-0.8); Monocytes % 11.3 % (1.7-12.7); Neutrophils # 4.2 10*3/uL (1.4-7.4); Neutrophils % 57.7 % (38.7-73.9); Platelet Count 300 T/CUMM (130-400); Red Blood Count 3.77 MC/CUMM (3.8-5.5); Red Cell Distribution Width 15.7 % (9.3-17.3); White Blood Count 7.4 T/CUMM (4-12)
[2018-07-06 05:53] LABS: Calcium 8.4 MG/DL (8.5-10.1); Osmolality,Calculated 265.1 MOS/KG (273-304); Potassium 4.4 MMOL/L (3.5-5.1)
[2018-07-06] MEDS: LEVOTHYROXINE 100 MCG TABLET PO SCH (06:24)
[2018-07-06] MEDS ORDERED: LIDOCAINE 2% 5 ML VIAL ONE (08:05)
[2018-07-06] MEDS ORDERED: PROPOFOL 200 MG/20 ML VIAL IV ONE (08:05)
[2018-07-06] MEDS: ALUMINUM/MAGNES/SIMETH MAX STR 30 ML UDCUP PO SCH ×2 (09:12→21:18)
[2018-07-06] MEDS: CHOLECALCIFEROL 1,000 UNIT TABLET PO SCH (09:13)
[2018-07-06] MEDS: POLYETHYLENE GLYCOL POWDER 17 GM PACK PO SCH (09:13)
[2018-07-06] MEDS: PANTOPRAZOLE 40 MG TABLET PO SCH ×2 (09:14→21:18)
[2018-07-06] MEDS: traMADol 50 MG TABLET PO PRN (09:14)
[2018-07-06] MEDS: DOCUSATE SODIUM 100 MG CAPSULE PO SCH ×2 (09:15→22:46)
[2018-07-06] MEDS: POTASSIUM CHLORIDE 20 MEQ TABLET PO SCH ×2 (09:16→21:18)
[2018-07-06] MEDS: ISOSORBIDE MONONITRATE 30 MG TABLET PO SCH (09:16)
[2018-07-06] MEDS: MEMANTINE 10 MG TABLET PO SCH ×2 (09:16→21:18)
[2018-07-06] MEDS: LEVOFLOXACIN INJ 250 MG in PREMIX 1 EACH IV SCH (09:17)
[2018-07-06] MEDS: FUROSEMIDE 20 MG TABLET PO SCH ×2 (09:26→16:51)
[2018-07-06] MEDS: traZODone 50 MG TABLET PO PRN (21:18)
[2018-07-07] MEDS: LEVOTHYROXINE 100 MCG TABLET PO SCH (06:44)
[2018-07-07] MEDS: LEVOFLOXACIN INJ 250 MG in PREMIX 1 EACH IV SCH (09:36)
[2018-07-07] MEDS: CHOLECALCIFEROL 1,000 UNIT TABLET PO SCH (09:41)
[2018-07-07] MEDS: PANTOPRAZOLE 40 MG TABLET PO SCH (09:41)
[2018-07-07] MEDS: ISOSORBIDE MONONITRATE 30 MG TABLET PO SCH (09:42)
[2018-07-07] MEDS: MEMANTINE 10 MG TABLET PO SCH (09:42)
[2018-07-07] MEDS: FUROSEMIDE 20 MG TABLET PO SCH ×2 (09:42→17:18)
[2018-07-07] MEDS: traMADol 50 MG TABLET PO PRN (09:43)
[2018-07-07] MEDS: ASPIRIN EC 81 MG TABLET PO SCH (09:44)
[2018-07-07] MEDS: ALUMINUM/MAGNES/SIMETH MAX STR 30 ML UDCUP PO SCH (09:44)
[2018-07-07] MEDS: DOCUSATE SODIUM 100 MG CAPSULE PO SCH (09:47)
[2018-07-07] MEDS: POTASSIUM CHLORIDE 20 MEQ TABLET PO SCH (09:49)
[2018-07-07 11:29] VITALS: BP 153/67
[2018-07-07 16:36] LABS: Calcium 8.8 MG/DL (8.5-10.1); Osmolality,Calculated 268.9 MOS/KG (273-304); Potassium 4.6 MMOL/L (3.5-5.1)
== END 2018-07-07 18:19 | disposition home health service (06) ==
LOC: N.EDINP 04:42 → N.ED 04:42 → N.TELEN 08:59
PROVIDERS: ADMIT Family Medicine; ATTEND Family Medicine

== ENCOUNTER 2022-03-07 12:49 | Inpatient (IN) ==
[2022-03-07 13:31] LABS: Basophils % 0.6 % (0.0-0.8); Eosinophils # 0.1 10*3/uL (0.0-0.87); Eosinophils % 1.8 % (0.00-10.9); Hematocrit 28.5 VOL% (35.7-47.0); Hemoglobin 8.6 GM/DL (12.0-16.0); Immature Granulocytes % 0.3 %; Immature Granulocytes Absolute 0.02 #; Lymphocytes # 0.9 10*3/uL (1.4-4.0); Lymphocytes % 13.8 % (21.3-54.2); Mean Corpuscular HGB Conc 30.2 GM/DL (32-36); Mean Corpuscular Volume 97.3 FL (87-102); Mean Platelet Volume 10.2 FL (9.6-12.0); Monocytes # 0.4 10*3/uL (0.11-0.8); Neutrophils % 77.5 % (38.7-73.9); Platelet Count 140 T/CUMM (130-400); Red Blood Count 2.93 MC/CUMM (3.8-5.5); Red Cell Distribution Width 16.4 % (9.3-17.3); White Blood Count 6.7 T/CUMM (4-12)
[2022-03-07 13:45] LABS: Alanine Aminotransferase 18 U/L (13-56); Albumin 3.1 G/DL (3.4-5.0); Alkaline Phosphatase 252 U/L (45-117); Aspartate Amino Transferase 19 U/L (0-37); Bilirubin,Total < 0.39 MG/DL (0.20-1.00); Blood Urea Nitrogen 70 MG/DL (7-18); Calcium 8.8 MG/DL (8.5-10.1); Carbon Dioxide 18 MMOL/L (21-32); Chloride 119 MMOL/L (98-107); Estimated Glom Filtration Rate 6 ML/MIN; Glucose 110 MG/DL (74-106); Osmolality,Calculated 311.6 MOS/KG (273-304); Potassium 4.3 MMOL/L (3.5-5.1); Sodium 146 MMOL/L (136-145)
[2022-03-07 15:28] LABS: Lactic Acid 0.7 MMOL/L (0.4-2.0)
[2022-03-07] MEDS ORDERED: GLUCAGON 1 MG VIAL IM PRN (16:15)
[2022-03-07] MEDS ORDERED: DEXTROSE 10% 250 ML BAG IV PRN (16:22)
[2022-03-07] MEDS ORDERED: FUROSEMIDE 40 MG/4 ML VIAL IV STA (16:35)
[2022-03-07 16:53] LABS: % Iron Saturation 12.9 % (18-50); Ferritin 81.6 ng/mL (8-252)
[2022-03-07 17:00] LABS: Folate > 24.00 NG/ML (5.38-24.0); Vitamin B12 342 PG/ML (211-911)
[2022-03-07 17:38] LABS: Bacteria,Urine Occasional /HPF (Few); Hyaline Casts,Urine 1 /LPF (0-3); RBC,Urine 1 /HPF (0-4); Squamous Epithelial Cell,Urine Occasional /HPF (0-10); Urine Appearance Clear (Clear); Urine Color Yellow (Yellow); Urine pH 5.5 (4.5-8.0)
[2022-03-07 17:39] LABS: Bilirubin,Urine Negative (Negative); Blood, Urine Small mg/dL (Negative); Glucose,Urine (UA) Negative (Negative); Ketones,Urine Negative (Negative); Nitrite,Urine Negative (Negative); Protein,Urine >=300 mg/dL (Negative); Urine Urobilinogen 0.2 eU/dL (<2.0)
[2022-03-07 18:15] LABS: Hepatitis B Core IgM Quant 0.09 Index; Hepatitis B Surface Ag Quant < 0.10 Index; Hepatitis B Surface Ag Result Non-Reactive (NonReactive); Hepatitis C Virus Ab Quant > 11.00 Index; Hepatitis C Virus Ab Result Reactive (NonReactive)
[2022-03-07 18:55] LABS: Protein/Creatinine Ratio,Urine 1.5 RATIO
[2022-03-07 21:37] LABS: Basophils % 0.5 % (0.0-0.8); Eosinophils # 0.1 10*3/uL (0.0-0.87); Eosinophils % 1.8 % (0.00-10.9); Hematocrit 28.9 VOL% (35.7-47.0); Hemoglobin 8.9 GM/DL (12.0-16.0); Immature Granulocytes % 0.3 %; Immature Granulocytes Absolute 0.02 #; Lymphocytes # 1.6 10*3/uL (1.4-4.0); Lymphocytes % 26.7 % (21.3-54.2); Mean Corpuscular HGB Conc 30.8 GM/DL (32-36); Mean Platelet Volume 10.5 FL (9.6-12.0); Monocytes # 0.4 10*3/uL (0.11-0.8); Monocytes % 6.4 % (1.7-12.7); Neutrophils % 64.3 % (38.7-73.9); Platelet Count 140 T/CUMM (130-400); Red Blood Count 3.01 MC/CUMM (3.8-5.5); Red Cell Distribution Width 16.5 % (9.3-17.3)
[2022-03-07 22:47] LABS: Sedimentation Rate-Westergren 120 MM/HR (0-30)
[2022-03-08] MEDS: DOXAZOSIN 1 MG TABLET PO SCH ×2 (00:53→20:20)
[2022-03-08] MEDS: MEMANTINE 10 MG TABLET PO SCH ×3 (00:53→20:20)
[2022-03-08 04:21] LABS: Basophils % 0.7 % (0.0-0.8); Eosinophils # 0.2 10*3/uL (0.0-0.87); Eosinophils % 3.2 % (0.00-10.9); Hematocrit 27.7 VOL% (35.7-47.0); Hemoglobin 8.6 GM/DL (12.0-16.0); Immature Granulocytes % 0.5 %; Immature Granulocytes Absolute 0.03 #; Lymphocytes # 1.7 10*3/uL (1.4-4.0); Lymphocytes % 27.9 % (21.3-54.2); Mean Corpuscular Volume 94.9 FL (87-102); Mean Platelet Volume 10.1 FL (9.6-12.0); Monocytes # 0.4 10*3/uL (0.11-0.8); Monocytes % 7.4 % (1.7-12.7); Neutrophils % 60.3 % (38.7-73.9); Platelet Count 130 T/CUMM (130-400); Red Blood Count 2.92 MC/CUMM (3.8-5.5); Red Cell Distribution Width 16.4 % (9.3-17.3)
[2022-03-08 04:53] LABS: Calcium 8.5 MG/DL (8.5-10.1); Osmolality,Calculated 308.6 MOS/KG (273-304); Potassium 4.4 MMOL/L (3.5-5.1); Risk Ratio 2.96; Thyroid Stimulating Hormone 0.066 uIU/ml (0.358-3.74); VLDL Cholesterol 18.4 MG/DL
[2022-03-08] MEDS: hydrALAZINE 20 MG/1 ML VIAL IV PRN (05:11)
[2022-03-08] MEDS ORDERED: LEVOTHYROXINE 100 MCG TABLET PO SCH (06:30)
[2022-03-08] MEDS: ISOSORBIDE MONONITRATE 30 MG TABLET PO SCH (08:54)
[2022-03-08] MEDS: FOLIC ACID 1 MG TABLET PO SCH (08:54)
[2022-03-08] MEDS: PANTOPRAZOLE 40 MG TABLET PO SCH (08:55)
[2022-03-08] MEDS ORDERED: DONEPEZIL 10 MG TABLET PO SCH (09:00)
[2022-03-08] MEDS ORDERED: DEXTROSE 5% NACL 0.45% 1,000 ML IV SCH (14:30)
[2022-03-08] MEDS ORDERED: LEVOFLOXACIN INJ 250 MG/50 ML PREMIX IV SCH (15:00)
[2022-03-09 06:29] LABS: Basophils % 0.7 % (0.0-0.8); Eosinophils # 0.2 10*3/uL (0.0-0.87); Eosinophils % 3.1 % (0.00-10.9); Hematocrit 25.8 VOL% (35.7-47.0); Hemoglobin 7.9 GM/DL (12.0-16.0); Immature Granulocytes % 0.5 %; Immature Granulocytes Absolute 0.03 #; Lymphocytes # 1.7 10*3/uL (1.4-4.0); Lymphocytes % 27.9 % (21.3-54.2); Mean Corpuscular HGB Conc 30.6 GM/DL (32-36); Mean Corpuscular Volume 94.9 FL (87-102); Mean Platelet Volume 10.3 FL (9.6-12.0); Monocytes # 0.5 10*3/uL (0.11-0.8); Monocytes % 8.9 % (1.7-12.7); Neutrophils % 58.9 % (38.7-73.9); Platelet Count 129 T/CUMM (130-400); Red Blood Count 2.72 MC/CUMM (3.8-5.5); Red Cell Distribution Width 16.4 % (9.3-17.3); White Blood Count 6.1 T/CUMM (4-12)
[2022-03-09] MEDS ORDERED: LEVOTHYROXINE 75 MCG TABLET PO SCH (06:30)
[2022-03-09 07:04] LABS: Osmolality,Calculated 310.4 MOS/KG (273-304); Potassium 4.7 MMOL/L (3.5-5.1)
[2022-03-09] MEDS: MEMANTINE 10 MG TABLET PO SCH ×2 (09:51→20:24)
[2022-03-09] MEDS: FOLIC ACID 1 MG TABLET PO SCH (09:52)
[2022-03-09] MEDS: ISOSORBIDE MONONITRATE 30 MG TABLET PO SCH (09:52)
[2022-03-09] MEDS: PANTOPRAZOLE 40 MG TABLET PO SCH (09:52)
[2022-03-09 11:32] LABS: Hemoglobin A1 (Alkaline) 98.4 % (96.5-98.5); Hemoglobin A2 (Alkaline) 1.6 % (1.5-3.5)
[2022-03-09] MEDS: DOXAZOSIN 1 MG TABLET PO SCH (20:23)
[2022-03-09] MEDS: CIPROFLOXACIN INJ 400 MG/200 ML PREMIX IV SCH (20:24)
[2022-03-10] MEDS: CIPROFLOXACIN INJ 400 MG/200 ML PREMIX IV SCH ×2 (00:40→20:28)
[2022-03-10] MEDS: hydrALAZINE 20 MG/1 ML VIAL IV PRN (04:14)
[2022-03-10 04:54] LABS: Basophils % 0.5 % (0.0-0.8); Eosinophils # 0.2 10*3/uL (0.0-0.87); Eosinophils % 2.8 % (0.00-10.9); Hematocrit 25.7 VOL% (35.7-47.0); Hemoglobin 7.9 GM/DL (12.0-16.0); Immature Granulocytes % 0.5 %; Immature Granulocytes Absolute 0.03 #; Lymphocytes % 30.1 % (21.3-54.2); Mean Corpuscular HGB Conc 30.7 GM/DL (32-36); Mean Corpuscular Volume 95.9 FL (87-102); Mean Platelet Volume 10.3 FL (9.6-12.0); Monocytes # 0.6 10*3/uL (0.11-0.8); Monocytes % 8.9 % (1.7-12.7); Neutrophils % 57.2 % (38.7-73.9); Platelet Count 139 T/CUMM (130-400); Red Blood Count 2.68 MC/CUMM (3.8-5.5); Red Cell Distribution Width 16.1 % (9.3-17.3); White Blood Count 6.5 T/CUMM (4-12)
[2022-03-10 05:13] LABS: Calcium 7.9 MG/DL (8.5-10.1); Osmolality,Calculated 306.7 MOS/KG (273-304); Potassium 4.5 MMOL/L (3.5-5.1)
[2022-03-10] MEDS: PANTOPRAZOLE 40 MG TABLET PO SCH (09:43)
[2022-03-10] MEDS: FOLIC ACID 1 MG TABLET PO SCH (09:43)
[2022-03-10] MEDS: ISOSORBIDE MONONITRATE 30 MG TABLET PO SCH (09:44)
[2022-03-10] MEDS: MEMANTINE 10 MG TABLET PO SCH ×2 (09:44→20:29)
[2022-03-10] MEDS: DOXAZOSIN 1 MG TABLET PO SCH (20:29)
[2022-03-11] MEDS: hydrALAZINE 20 MG/1 ML VIAL IV PRN (00:02)
[2022-03-11 08:53] LABS: Basophils % 0.7 % (0.0-0.8); Eosinophils # 0.2 10*3/uL (0.0-0.87); Eosinophils % 3.9 % (0.00-10.9); Hematocrit 27.1 VOL% (35.7-47.0); Hemoglobin 8.1 GM/DL (12.0-16.0); Immature Granulocytes % 0.7 %; Immature Granulocytes Absolute 0.04 #; Lymphocytes # 1.9 10*3/uL (1.4-4.0); Lymphocytes % 31.6 % (21.3-54.2); Mean Corpuscular HGB Conc 29.9 GM/DL (32-36); Mean Corpuscular Volume 98.5 FL (87-102); Mean Platelet Volume 9.3 FL (9.6-12.0); Monocytes # 0.5 10*3/uL (0.11-0.8); Monocytes % 7.8 % (1.7-12.7); Neutrophils % 55.3 % (38.7-73.9); Platelet Count 151 T/CUMM (130-400); Red Blood Count 2.75 MC/CUMM (3.8-5.5); Red Cell Distribution Width 16.2 % (9.3-17.3); White Blood Count 5.9 T/CUMM (4-12)
[2022-03-11] MEDS: FERROUS SULFATE 325 MG TABLET PO SCH (08:59)
[2022-03-11] MEDS: DONEPEZIL 10 MG TABLET PO SCH (09:10)
[2022-03-11] MEDS: FOLIC ACID 1 MG TABLET PO SCH (09:10)
[2022-03-11] MEDS: ISOSORBIDE MONONITRATE 30 MG TABLET PO SCH (09:10)
[2022-03-11] MEDS: PANTOPRAZOLE 40 MG TABLET PO SCH (09:11)
[2022-03-11] MEDS: MEMANTINE 10 MG TABLET PO SCH ×2 (09:11→20:46)
[2022-03-11 09:12] LABS: Alanine Aminotransferase 18 U/L (13-56); Albumin 2.6 G/DL (3.4-5.0); Alkaline Phosphatase 214 U/L (45-117); Aspartate Amino Transferase 18 U/L (0-37); Bilirubin,Total < 0.39 MG/DL (0.20-1.00); Blood Urea Nitrogen 73 MG/DL (7-18); Calcium 8.4 MG/DL (8.5-10.1); Carbon Dioxide 18 MMOL/L (21-32); Chloride 118 MMOL/L (98-107); Estimated Glom Filtration Rate 5 ML/MIN; Glucose 100 MG/DL (74-106); Osmolality,Calculated 307.8 MOS/KG (273-304); Potassium 4.7 MMOL/L (3.5-5.1); Sodium 144 MMOL/L (136-145); Total Protein 6.7 G/DL (6.4-8.2)
[2022-03-11] MEDS: ONDANSETRON 4 MG/2 ML VIAL IV PRN (11:52)
[2022-03-11] MEDS: DOXAZOSIN 1 MG TABLET PO SCH (20:46)
[2022-03-11] MEDS: CIPROFLOXACIN INJ 400 MG/200 ML PREMIX IV SCH (20:47)
[2022-03-12] MEDS: ISOSORBIDE MONONITRATE 30 MG TABLET PO SCH (08:31)
[2022-03-12] MEDS: PANTOPRAZOLE 40 MG TABLET PO SCH (08:31)
[2022-03-12] MEDS: FOLIC ACID 1 MG TABLET PO SCH (08:31)
[2022-03-12] MEDS: DONEPEZIL 10 MG TABLET PO SCH (08:31)
[2022-03-12] MEDS: MEMANTINE 10 MG TABLET PO SCH ×2 (08:31→20:41)
[2022-03-12] MEDS: FERROUS SULFATE 325 MG TABLET PO SCH (08:31)
[2022-03-12] MEDS: hydrALAZINE 20 MG/1 ML VIAL IV PRN (08:48)
[2022-03-12 09:12] LABS: Basophils % 0.5 % (0.0-0.8); Eosinophils # 0.2 10*3/uL (0.0-0.87); Eosinophils % 3.8 % (0.00-10.9); Hematocrit 27.3 VOL% (35.7-47.0); Hemoglobin 8.3 GM/DL (12.0-16.0); Immature Granulocytes % 0.5 %; Immature Granulocytes Absolute 0.03 #; Lymphocytes # 1.6 10*3/uL (1.4-4.0); Lymphocytes % 28.6 % (21.3-54.2); Mean Corpuscular HGB Conc 30.4 GM/DL (32-36); Mean Corpuscular Volume 96.1 FL (87-102); Mean Platelet Volume 9.8 FL (9.6-12.0); Monocytes # 0.4 10*3/uL (0.11-0.8); Monocytes % 6.3 % (1.7-12.7); Neutrophils % 60.3 % (38.7-73.9); Platelet Count 165 T/CUMM (130-400); Red Blood Count 2.84 MC/CUMM (3.8-5.5); Red Cell Distribution Width 15.7 % (9.3-17.3); White Blood Count 5.6 T/CUMM (4-12)
[2022-03-12 09:48] LABS: Calcium 8.4 MG/DL (8.5-10.1); Potassium 4.7 MMOL/L (3.5-5.1)
[2022-03-12] MEDS: CIPROFLOXACIN INJ 400 MG/200 ML PREMIX IV SCH (20:42)
[2022-03-12] MEDS: DOXAZOSIN 1 MG TABLET PO SCH (20:42)
[2022-03-13 05:03] LABS: Basophils % 0.6 % (0.0-0.8); Eosinophils # 0.2 10*3/uL (0.0-0.87); Hemoglobin 8.8 GM/DL (12.0-16.0); Immature Granulocytes % 1.5 %; Immature Granulocytes Absolute 0.07 #; Lymphocytes # 1.2 10*3/uL (1.4-4.0); Lymphocytes % 25.1 % (21.3-54.2); Mean Corpuscular HGB Conc 29.3 GM/DL (32-36); Mean Corpuscular Volume 101.4 FL (87-102); Mean Platelet Volume 9.5 FL (9.6-12.0); Monocytes # 0.3 10*3/uL (0.11-0.8); Neutrophils % 61.8 % (38.7-73.9); Platelet Count 141 T/CUMM (130-400); Red Blood Count 2.96 MC/CUMM (3.8-5.5); Red Cell Distribution Width 15.6 % (9.3-17.3); White Blood Count 4.7 T/CUMM (4-12)
[2022-03-13 05:16] LABS: Calcium 8.3 MG/DL (8.5-10.1); Osmolality,Calculated 292.7 MOS/KG (273-304)
[2022-03-13 05:20] LABS: INR 1.1; PT Patient Result 12.7 SECS (10.5-12.0); Partial Thromboplastin Time 23.9 SECS (23.8-32.1)
[2022-03-13] MEDS: hydrALAZINE 20 MG/1 ML VIAL IV PRN (05:23)
[2022-03-13 07:13] LABS: Platelet Estimate Normal
[2022-03-13] MEDS: MEMANTINE 10 MG TABLET PO SCH ×2 (08:19→20:41)
[2022-03-13] MEDS: FERROUS SULFATE 325 MG TABLET PO SCH (08:19)
[2022-03-13] MEDS: DONEPEZIL 10 MG TABLET PO SCH (08:19)
[2022-03-13] MEDS: ISOSORBIDE MONONITRATE 30 MG TABLET PO SCH (08:19)
[2022-03-13] MEDS: FOLIC ACID 1 MG TABLET PO SCH (08:19)
[2022-03-13] MEDS: PANTOPRAZOLE 40 MG TABLET PO SCH (08:19)
[2022-03-13] MEDS ORDERED: DIAZEPAM 5 MG TABLET PO ONE (12:30)
[2022-03-13] MEDS: SODIUM CHLORIDE 0.45% 1,000 ML IV SCH (13:31)
[2022-03-13] MEDS: DOXAZOSIN 1 MG TABLET PO SCH (20:41)
[2022-03-13] MEDS: MELATONIN 3 MG TABLET PO PRN (20:41)
[2022-03-13] MEDS: CIPROFLOXACIN INJ 400 MG/200 ML PREMIX IV SCH (21:50)
[2022-03-14 05:30] LABS: Basophils % 0.5 % (0.0-0.8); Eosinophils # 0.2 10*3/uL (0.0-0.87); Hemoglobin 8.1 GM/DL (12.0-16.0); Immature Granulocytes % 1.5 %; Immature Granulocytes Absolute 0.08 #; Lymphocytes % 18.3 % (21.3-54.2); Mean Corpuscular HGB Conc 31.2 GM/DL (32-36); Mean Corpuscular Volume 93.2 FL (87-102); Mean Platelet Volume 9.6 FL (9.6-12.0); Monocytes # 0.4 10*3/uL (0.11-0.8); Monocytes % 6.6 % (1.7-12.7); Neutrophils % 69.1 % (38.7-73.9); Platelet Count 155 T/CUMM (130-400); Red Blood Count 2.79 MC/CUMM (3.8-5.5); Red Cell Distribution Width 15.5 % (9.3-17.3); White Blood Count 5.5 T/CUMM (4-12)
[2022-03-14 05:52] LABS: Calcium 8.6 MG/DL (8.5-10.1); Osmolality,Calculated 286.1 MOS/KG (273-304); Potassium 5.5 MMOL/L (3.5-5.1)
[2022-03-14] MEDS: MEMANTINE 10 MG TABLET PO SCH ×2 (09:25→20:29)
[2022-03-14] MEDS: PANTOPRAZOLE 40 MG TABLET PO SCH (09:25)
[2022-03-14] MEDS: FERROUS SULFATE 325 MG TABLET PO SCH (09:25)
[2022-03-14] MEDS: DONEPEZIL 10 MG TABLET PO SCH (09:25)
[2022-03-14] MEDS: FOLIC ACID 1 MG TABLET PO SCH (09:26)
[2022-03-14] MEDS: ISOSORBIDE MONONITRATE 30 MG TABLET PO SCH (09:26)
[2022-03-14] MEDS: SODIUM CHLORIDE 0.45% 1,000 ML IV SCH (12:45)
[2022-03-14] MEDS ORDERED: SODIUM POLYSTYRENE SULFATE 15 GM/60 ML BOTTLE PO STA (13:38)
[2022-03-14] MEDS ORDERED: SODIUM BICARB INJ 150 MEQ in STERILE WATER INJ 850 ML IV SCH (14:00)
[2022-03-14] MEDS: hydrALAZINE 20 MG/1 ML VIAL IV PRN (16:05)
[2022-03-14] MEDS: CIPROFLOXACIN INJ 400 MG/200 ML PREMIX IV SCH (20:28)
[2022-03-14] MEDS: DOXAZOSIN 1 MG TABLET PO SCH (20:28)
[2022-03-14] MEDS: MELATONIN 3 MG TABLET PO PRN (20:29)
[2022-03-14] MEDS: SODIUM BICARBONATE 650 MG TABLET PO SCH (20:29)
[2022-03-15 06:35] LABS: Basophils % 0.4 % (0.0-0.8); Eosinophils # 0.2 10*3/uL (0.0-0.87); Eosinophils % 3.6 % (0.00-10.9); Hematocrit 24.8 VOL% (35.7-47.0); Hemoglobin 7.7 GM/DL (12.0-16.0); Immature Granulocytes % 1.7 %; Immature Granulocytes Absolute 0.09 #; Lymphocytes # 1.2 10*3/uL (1.4-4.0); Lymphocytes % 23.4 % (21.3-54.2); Mean Corpuscular Volume 93.6 FL (87-102); Mean Platelet Volume 10.2 FL (9.6-12.0); Monocytes # 0.4 10*3/uL (0.11-0.8); Monocytes % 7.8 % (1.7-12.7); Neutrophils % 63.1 % (38.7-73.9); Platelet Count 164 T/CUMM (130-400); Red Blood Count 2.65 MC/CUMM (3.8-5.5); Red Cell Distribution Width 15.5 % (9.3-17.3); White Blood Count 5.3 T/CUMM (4-12)
[2022-03-15 07:05] LABS: Alanine Aminotransferase 21 U/L (13-56); Albumin 2.6 G/DL (3.4-5.0); Alkaline Phosphatase 205 U/L (45-117); Aspartate Amino Transferase 30 U/L (0-37); Bilirubin,Total < 0.39 MG/DL (0.20-1.00); Blood Urea Nitrogen 69 MG/DL (7-18); Calcium 8.2 MG/DL (8.5-10.1); Carbon Dioxide 21 MMOL/L (21-32); Chloride 108 MMOL/L (98-107); Estimated Glom Filtration Rate 5 ML/MIN; Glucose 65 MG/DL (74-106); Osmolality,Calculated 290.8 MOS/KG (273-304); Potassium 5.3 MMOL/L (3.5-5.1); Sodium 137 MMOL/L (136-145); Total Protein 6.5 G/DL (6.4-8.2)
[2022-03-15] MEDS: SODIUM BICARBONATE 650 MG TABLET PO SCH ×2 (09:27→20:36)
[2022-03-15] MEDS: PANTOPRAZOLE 40 MG TABLET PO SCH (09:27)
[2022-03-15] MEDS: ISOSORBIDE MONONITRATE 30 MG TABLET PO SCH (09:27)
[2022-03-15] MEDS: MEMANTINE 10 MG TABLET PO SCH ×2 (09:27→20:36)
[2022-03-15] MEDS: DONEPEZIL 10 MG TABLET PO SCH (09:27)
[2022-03-15] MEDS: FERROUS SULFATE 325 MG TABLET PO SCH (09:27)
[2022-03-15] MEDS: FOLIC ACID 1 MG TABLET PO SCH (09:27)
[2022-03-15] MEDS ORDERED: amLODIPine 10 MG TABLET PO ONE (13:57)
[2022-03-15] MEDS: ACETAMINOPHEN 325 MG TABLET PO PRN (18:30)
[2022-03-15] MEDS: DOXAZOSIN 1 MG TABLET PO SCH (20:36)
[2022-03-15] MEDS: MELATONIN 3 MG TABLET PO PRN (20:36)
[2022-03-15] MEDS: ONDANSETRON 4 MG/2 ML VIAL IV PRN (20:42)
[2022-03-16 06:31] LABS: Basophils % 0.5 % (0.0-0.8); Eosinophils # 0.3 10*3/uL (0.0-0.87); Eosinophils % 4.9 % (0.00-10.9); Hematocrit 25.1 VOL% (35.7-47.0); Immature Granulocytes % 0.9 %; Immature Granulocytes Absolute 0.05 #; Lymphocytes # 1.4 10*3/uL (1.4-4.0); Lymphocytes % 24.9 % (21.3-54.2); Mean Corpuscular HGB Conc 31.9 GM/DL (32-36); Mean Corpuscular Volume 93.3 FL (87-102); Mean Platelet Volume 10.1 FL (9.6-12.0); Monocytes # 0.4 10*3/uL (0.11-0.8); Neutrophils % 60.8 % (38.7-73.9); Platelet Count 153 T/CUMM (130-400); Red Blood Count 2.69 MC/CUMM (3.8-5.5); Red Cell Distribution Width 15.1 % (9.3-17.3); White Blood Count 5.5 T/CUMM (4-12)
[2022-03-16 06:51] LABS: Osmolality,Calculated 285.2 MOS/KG (273-304); Potassium 5.3 MMOL/L (3.5-5.1)
[2022-03-16] MEDS: FOLIC ACID 1 MG TABLET PO SCH (09:03)
[2022-03-16] MEDS: MULTIVITAMIN (CENTRUM) TABLET PO SCH (09:03)
[2022-03-16] MEDS: SODIUM BICARBONATE 650 MG TABLET PO SCH ×2 (09:03→20:43)
[2022-03-16] MEDS: DONEPEZIL 10 MG TABLET PO SCH (09:03)
[2022-03-16] MEDS: MEMANTINE 10 MG TABLET PO SCH ×2 (09:03→20:43)
[2022-03-16] MEDS: ISOSORBIDE MONONITRATE 30 MG TABLET PO SCH (09:03)
[2022-03-16] MEDS: PANTOPRAZOLE 40 MG TABLET PO SCH (09:04)
[2022-03-16] MEDS: FERROUS SULFATE 325 MG TABLET PO SCH (09:04)
[2022-03-16] MEDS: amLODIPine 10 MG TABLET PO SCH (09:04)
[2022-03-16] MEDS ORDERED: SODIUM POLYSTYRENE SULFATE 15 GM/60 ML BOTTLE PO STA (10:33)
[2022-03-16] MEDS: DOCUSATE SODIUM 100 MG CAPSULE PO SCH ×2 (14:33→20:44)
[2022-03-16] MEDS: MELATONIN 3 MG TABLET PO PRN (20:44)
[2022-03-16] MEDS: ACETAMINOPHEN 325 MG TABLET PO PRN (20:44)
[2022-03-16] MEDS: DOXAZOSIN 1 MG TABLET PO SCH (20:44)
[2022-03-17 05:32] LABS: Basophils % 0.5 % (0.0-0.8); Eosinophils # 0.2 10*3/uL (0.0-0.87); Eosinophils % 3.2 % (0.00-10.9); Hematocrit 22.9 VOL% (35.7-47.0); Hemoglobin 7.2 GM/DL (12.0-16.0); Immature Granulocytes % 0.9 %; Immature Granulocytes Absolute 0.06 #; Lymphocytes # 1.8 10*3/uL (1.4-4.0); Mean Corpuscular HGB Conc 31.4 GM/DL (32-36); Mean Corpuscular Volume 92.7 FL (87-102); Mean Platelet Volume 10.4 FL (9.6-12.0); Monocytes # 0.5 10*3/uL (0.11-0.8); Monocytes % 7.2 % (1.7-12.7); Neutrophils % 60.2 % (38.7-73.9); Platelet Count 167 T/CUMM (130-400); Red Blood Count 2.47 MC/CUMM (3.8-5.5); White Blood Count 6.5 T/CUMM (4-12)
[2022-03-17 05:50] LABS: Calcium 7.5 MG/DL (8.5-10.1); Potassium 4.9 MMOL/L (3.5-5.1)
[2022-03-17] MEDS: PANTOPRAZOLE 40 MG TABLET PO SCH (08:44)
[2022-03-17] MEDS: amLODIPine 10 MG TABLET PO SCH (08:44)
[2022-03-17] MEDS: SODIUM BICARBONATE 650 MG TABLET PO SCH (08:44)
[2022-03-17] MEDS: MULTIVITAMIN (CENTRUM) TABLET PO SCH (08:44)
[2022-03-17] MEDS: MEMANTINE 10 MG TABLET PO SCH (08:44)
[2022-03-17] MEDS: ISOSORBIDE MONONITRATE 30 MG TABLET PO SCH (08:45)
[2022-03-17] MEDS: DONEPEZIL 10 MG TABLET PO SCH (08:45)
[2022-03-17] MEDS: FOLIC ACID 1 MG TABLET PO SCH (08:45)
[2022-03-17] MEDS: DOCUSATE SODIUM 100 MG CAPSULE PO SCH (08:45)
[2022-03-17] MEDS: FERROUS SULFATE 325 MG TABLET PO SCH (08:45)
[2022-03-17 12:19] VITALS: BP 156/47
== END 2022-03-17 13:17 | disposition home health service (06) | DRG 682 ==
LOC: N.ED 12:49 → N.EDINP 16:15 → SUATTDRO 16:15 → N.5E 03-08 12:40
PROVIDERS: ADMIT Family Medicine; ATTEND Internal Medicine

== ENCOUNTER 2022-03-21 09:25 | Inpatient (IN) ==
[2022-03-21 10:25] LABS: Basophils % 0.2 % (0.0-0.8); Hematocrit 35.4 VOL% (35.7-47.0); Hemoglobin 11.1 GM/DL (12.0-16.0); Immature Granulocytes % 0.8 %; Immature Granulocytes Absolute 0.04 #; Lymphocytes # 0.4 10*3/uL (1.4-4.0); Lymphocytes % 8.6 % (21.3-54.2); Mean Corpuscular HGB Conc 31.4 GM/DL (32-36); Mean Corpuscular Volume 92.4 FL (87-102); Mean Platelet Volume 10.6 FL (9.6-12.0); Monocytes # 0.1 10*3/uL (0.11-0.8); Monocytes % 1.6 % (1.7-12.7); NRBC # 0.02 10*3/uL; Neutrophils % 88.8 % (38.7-73.9); Platelet Count 146 T/CUMM (130-400); Red Blood Count 3.83 MC/CUMM (3.8-5.5); Red Cell Distribution Width 15.9 % (9.3-17.3); White Blood Count 5.1 T/CUMM (4-12)
[2022-03-21 10:36] LABS: Alanine Aminotransferase 19 U/L (13-56); Alkaline Phosphatase 190 U/L (45-117); Aspartate Amino Transferase 22 U/L (0-37); Bilirubin,Total < 0.39 MG/DL (0.20-1.00); Blood Urea Nitrogen 87 MG/DL (7-18); Calcium 6.9 MG/DL (8.5-10.1); Carbon Dioxide 20 MMOL/L (21-32); Chloride 97 MMOL/L (98-107); Estimated Glom Filtration Rate 5 ML/MIN; Glucose 132 MG/DL (74-106); Osmolality,Calculated 283.2 MOS/KG (273-304); Sodium 127 MMOL/L (136-145); Total Protein 6.5 G/DL (6.4-8.2)
[2022-03-21 10:37] LABS: INR 1.1; PT Patient Result 12.4 SECS (10.5-12.0); Partial Thromboplastin Time 32.9 SECS (23.8-32.1)
[2022-03-21] MEDS ORDERED: ATROPINE 1 MG/10 ML SYRINGE ONE (10:41)
[2022-03-21] MEDS ORDERED: ATROPINE 1 MG/10 ML SYRINGE IV STA ×2 (10:41→11:10)
[2022-03-21 10:47] LABS: Potassium 7.3 MMOL/L (3.5-5.1)
[2022-03-21] MEDS ORDERED: INSULIN REGULAR 100 UNIT/ML IV ONE (10:49)
[2022-03-21] MEDS ORDERED: CALCIUM GLUCONATE RIDER 2,000 MG/100 ML PREMIX IV ONE (10:49)
[2022-03-21] MEDS ORDERED: SODIUM BICARBONATE 50 MEQ/50 ML VIAL IV STA ×2 (10:49→11:55)
[2022-03-21] MEDS ORDERED: DEXTROSE 50% 25 GM/50 ML VIAL IV STA (10:50)
[2022-03-21] MEDS ORDERED: DEXTROSE 50% 25 GM/50 ML SYRINGE IV ONE ×2 (10:56→14:52)
[2022-03-21] MEDS ORDERED: FUROSEMIDE 100 MG/10 ML VIAL IV STA (11:57)
[2022-03-21 14:41] LABS: Calcium 7.4 MG/DL (8.5-10.1); Osmolality,Calculated 284.7 MOS/KG (273-304)
[2022-03-21 14:46] LABS: Potassium 6.7 MMOL/L (3.5-5.1)
[2022-03-21] MEDS ORDERED: SODIUM ZIRCONIUM CYCLOSILICATE 10 GM PACK PO SCH (15:00)
[2022-03-21] MEDS ORDERED: ATROPINE 1 MG/10 ML SYRINGE IV PRN (15:11)
[2022-03-21] MEDS ORDERED: GLUCAGON 1 MG VIAL ONE (15:23)
[2022-03-21] MEDS ORDERED: ATROPINE 0.4 MG/1 ML VIAL IM ONE (15:30)
[2022-03-21] MEDS: ALBUTEROL 2.5 MG/3 ML NEB RESP TX PRN (15:31)
[2022-03-21] MEDS ORDERED: GLUCAGON 1 MG VIAL IM PRN (15:45)
[2022-03-21] MEDS ORDERED: CALCIUM CHLORIDE 1,000 MG/10 ML SYRINGE IV ONE (15:46)
[2022-03-21] MEDS: SODIUM BICARB INJ 100 MEQ in DEXTROSE 5% 1,000 ML IV SCH (16:30)
[2022-03-21] MEDS: LEVOTHYROXINE 100 MCG VIAL IV SCH (16:43)
[2022-03-21] MEDS: HYDROCORTISONE 100 MG VIAL IV SCH ×2 (16:43→21:45)
[2022-03-21 17:36] LABS: Blood Urea Nitrogen 49 MG/DL (7-18); Carbon Dioxide 16 MMOL/L (21-32); Chloride 122 MMOL/L (98-107); Estimated Glom Filtration Rate 11 ML/MIN; Glucose 51 MG/DL (74-106); Osmolality,Calculated 299.6 MOS/KG (273-304); Sodium 146 MMOL/L (136-145)
[2022-03-21 17:37] LABS: Calcium < 5.0 MG/DL (8.5-10.1)
[2022-03-21] MEDS ORDERED: HEPARIN 10,000 UNIT/10 ML VIAL IV SCH (18:00)
[2022-03-21] MEDS: CALCIUM CARBONATE CHEW 500 MG TABLET PO SCH (21:40)
[2022-03-22] MEDS: ACETAMINOPHEN 325 MG TABLET PO PRN ×3 (01:46→15:55)
[2022-03-22] MEDS: SODIUM BICARB INJ 100 MEQ in DEXTROSE 5% 1,000 ML IV SCH (02:30)
[2022-03-22 03:42] LABS: Basophils % 0.1 % (0.0-0.8); Hematocrit 19.8 VOL% (35.7-47.0); Immature Granulocytes % 0.9 %; Immature Granulocytes Absolute 0.07 #; Lymphocytes # 0.4 10*3/uL (1.4-4.0); Lymphocytes % 5.6 % (21.3-54.2); Mean Corpuscular HGB Conc 32.3 GM/DL (32-36); Mean Corpuscular Volume 92.1 FL (87-102); Monocytes # 0.2 10*3/uL (0.11-0.8); Monocytes % 2.2 % (1.7-12.7); NRBC # 0.02 10*3/uL; Neutrophils % 91.2 % (38.7-73.9); Platelet Count 175 T/CUMM (130-400); Red Blood Count 2.15 MC/CUMM (3.8-5.5); Red Cell Distribution Width 15.6 % (9.3-17.3); White Blood Count 7.4 T/CUMM (4-12)
[2022-03-22 03:48] LABS: Hemoglobin 6.4 GM/DL (12.0-16.0)
[2022-03-22 04:01] LABS: Lymphocytes 5 % (20-55); Platelet Estimate Adequate; Total Cells Counted 100
[2022-03-22 04:02] LABS: Hypochromia 1+; Microcytosis 1+
[2022-03-22 04:15] LABS: Calcium 7.9 MG/DL (8.5-10.1); Osmolality,Calculated 279.2 MOS/KG (273-304); Potassium 5.3 MMOL/L (3.5-5.1)
[2022-03-22 04:54] LABS: Bacteria,Urine Many /HPF (Few); Hyaline Casts,Urine 3 /LPF (0-3); RBC,Urine 9 /HPF (0-4); Squamous Epithelial Cell,Urine Occasional /HPF (0-10); Urine Appearance Slightly Hazy (Clear); Urine Color Yellow (Yellow); Urine Specific Gravity 1.015 (1.001-1.035); Urine pH 7.5 (4.5-8.0)
[2022-03-22 04:55] LABS: Bilirubin,Urine Negative (Negative); Blood, Urine Moderate mg/dL (Negative); Glucose,Urine (UA) Negative (Negative); Ketones,Urine Negative (Negative); Nitrite,Urine Negative (Negative); Protein,Urine 100 mg/dL (Negative); Urine Urobilinogen 0.2 eU/dL (<2.0)
[2022-03-22 05:08] LABS: Hematocrit 19.9 VOL% (35.7-47.0)
[2022-03-22 05:14] LABS: Hemoglobin 6.2 GM/DL (12.0-16.0)
[2022-03-22] MEDS ORDERED: SODIUM CHLORIDE 0.9% 1,000 ML IV PRN (05:29)
[2022-03-22] MEDS: HYDROCORTISONE 100 MG VIAL IV SCH ×2 (06:28→18:56)
[2022-03-22] MEDS: LEVOTHYROXINE 100 MCG VIAL IV SCH (06:46)
[2022-03-22] MEDS: CALCIUM CARBONATE CHEW 500 MG TABLET PO SCH ×2 (09:06→21:30)
[2022-03-22] MEDS: LEVOFLOXACIN 500 MG TABLET PO SCH (09:06)
[2022-03-22] MEDS: DEXTROSE 5% NACL 0.9% 1,000 ML IV SCH (09:14)
[2022-03-22] MEDS ORDERED: LEVOTHYROXINE 100 MCG TABLET PO SCH (10:00)
[2022-03-22] MEDS ORDERED: amLODIPine 10 MG TABLET PO ONE (17:00)
[2022-03-22] MEDS: SODIUM BICARBONATE 650 MG TABLET PO SCH (21:30)
[2022-03-22] MEDS: MEMANTINE 10 MG TABLET PO SCH (21:30)
[2022-03-23] MEDS: DEXTROSE 5% NACL 0.9% 1,000 ML IV SCH ×3 (00:35→18:43)
[2022-03-23 03:57] LABS: Basophils % 0.1 % (0.0-0.8); Eosinophils % 0.1 % (0.00-10.9); Hematocrit 23.3 VOL% (35.7-47.0); Hemoglobin 7.3 GM/DL (12.0-16.0); Immature Granulocytes % 1.2 %; Lymphocytes # 0.6 10*3/uL (1.4-4.0); Lymphocytes % 7.1 % (21.3-54.2); Mean Corpuscular HGB Conc 31.3 GM/DL (32-36); Mean Corpuscular Volume 93.6 FL (87-102); Mean Platelet Volume 10.4 FL (9.6-12.0); Monocytes # 0.3 10*3/uL (0.11-0.8); Monocytes % 3.5 % (1.7-12.7); NRBC # 0.02 10*3/uL; Platelet Count 168 T/CUMM (130-400); Red Blood Count 2.49 MC/CUMM (3.8-5.5); Red Cell Distribution Width 15.5 % (9.3-17.3); White Blood Count 8.7 T/CUMM (4-12)
[2022-03-23 04:18] LABS: Osmolality,Calculated 279.4 MOS/KG (273-304); Potassium 5.2 MMOL/L (3.5-5.1)
[2022-03-23] MEDS: HYDROCORTISONE 100 MG VIAL IV SCH (06:41)
[2022-03-23] MEDS ORDERED: CLINDAMYCIN INJ 900 MG/50 ML PREMIX IV ONE (07:15)
[2022-03-23] MEDS ORDERED: SODIUM POLYSTYRENE SULFATE 15 GM/60 ML BOTTLE PO ONE (07:32)
[2022-03-23 08:02] LABS: % Iron Saturation 19.1 % (18-50)
[2022-03-23] MEDS: CALCIUM CARBONATE CHEW 500 MG TABLET PO SCH ×2 (08:43→20:15)
[2022-03-23] MEDS: SODIUM BICARBONATE 650 MG TABLET PO SCH ×2 (08:43→20:15)
[2022-03-23] MEDS: amLODIPine 10 MG TABLET PO SCH (08:43)
[2022-03-23] MEDS: FOLIC ACID 1 MG TABLET PO SCH (08:43)
[2022-03-23] MEDS: MEMANTINE 10 MG TABLET PO SCH ×2 (08:43→20:15)
[2022-03-23] MEDS: DONEPEZIL 10 MG TABLET PO SCH (08:43)
[2022-03-23] MEDS ORDERED: LEVOTHYROXINE 75 MCG TABLET PO SCH (10:00)
[2022-03-23] MEDS: LEVOTHYROXINE 100 MCG TABLET PO SCH (11:00)
[2022-03-23] MEDS: hydrALAZINE 20 MG/1 ML VIAL IV PRN (11:20)
[2022-03-23] MEDS ORDERED: ONDANSETRON 4 MG/2 ML VIAL ONE (13:06)
[2022-03-23] MEDS ORDERED: ROCURONIUM 50 MG/5 ML VIAL IV ONE (13:06)
[2022-03-23] MEDS ORDERED: propofoL 200 MG/20 ML VIAL IV ONE (13:06)
[2022-03-23] MEDS ORDERED: LIDOCAINE 2% 5 ML VIAL ONE (13:06)
[2022-03-23] MEDS ORDERED: fentaNYL 100 MCG/2 ML VIAL ONE (13:07)
[2022-03-23] MEDS ORDERED: LIDOCAINE 1%/EPI INJ 20 ML VIAL ONE (13:13)
[2022-03-23] MEDS ORDERED: BUPIVACAINE MPF 0.25% 30 ML VIAL ONE (13:13)
[2022-03-23] MEDS ORDERED: TISSUE ADHESIVE 1 EACH APPLICATOR TOP ONE (13:13)
[2022-03-23] MEDS ORDERED: SODIUM CHLORIDE 0.9% 250 ML IV SCH (13:30)
[2022-03-23] MEDS ORDERED: ePHEDrine 50 MG/ML VIAL ONE (13:47)
[2022-03-23] MEDS ORDERED: NEOSTIGMINE 10 MG/10 ML VIAL ONE (14:04)
[2022-03-23] MEDS ORDERED: GLYCOPYRROLATE 0.4 MG/2 ML VIAL ONE (14:04)
[2022-03-23] MEDS ORDERED: SUGAMMADEX 200 MG/2 ML VIAL IV ONE (14:33)
[2022-03-23] MEDS: hydrALAZINE 25 MG TABLET PO SCH ×2 (15:22→20:15)
[2022-03-23 15:41] LABS: Hematocrit 28.5 VOL% (35.7-47.0); Hemoglobin 9.1 GM/DL (12.0-16.0)
[2022-03-23] MEDS: PANTOPRAZOLE 40 MG VIAL IV SCH (16:45)
[2022-03-23 19:11] LABS: Folate 18.41 NG/ML (5.38-24.0)
[2022-03-24] MEDS: DEXTROSE 5% NACL 0.9% 1,000 ML IV SCH ×4 (01:15→20:58)
[2022-03-24] MEDS: MORPHINE 2 MG/1 ML SYRINGE IV PRN ×2 (02:30→23:30)
[2022-03-24] MEDS: hydrALAZINE 20 MG/1 ML VIAL IV PRN (04:33)
[2022-03-24 04:49] LABS: Basophils % 0.3 % (0.0-0.8); Eosinophils # 0.1 10*3/uL (0.0-0.87); Eosinophils % 1.2 % (0.00-10.9); Hematocrit 28.1 VOL% (35.7-47.0); Immature Granulocytes % 0.6 %; Immature Granulocytes Absolute 0.06 #; Lymphocytes # 1.1 10*3/uL (1.4-4.0); Mean Corpuscular Volume 92.7 FL (87-102); Monocytes # 0.7 10*3/uL (0.11-0.8); Monocytes % 7.5 % (1.7-12.7); Neutrophils % 78.4 % (38.7-73.9); Platelet Count 198 T/CUMM (130-400); Red Blood Count 3.03 MC/CUMM (3.8-5.5); Red Cell Distribution Width 17.5 % (9.3-17.3); White Blood Count 9.4 T/CUMM (4-12)
[2022-03-24 05:03] LABS: Calcium 7.6 MG/DL (8.5-10.1); Osmolality,Calculated 287.8 MOS/KG (273-304)
[2022-03-24] MEDS: LEVOTHYROXINE 100 MCG TABLET PO SCH (06:19)
[2022-03-24] MEDS: SODIUM BICARBONATE 650 MG TABLET PO SCH ×2 (08:52→20:56)
[2022-03-24] MEDS: PANTOPRAZOLE 40 MG VIAL IV SCH (08:53)
[2022-03-24] MEDS: DONEPEZIL 10 MG TABLET PO SCH (08:53)
[2022-03-24] MEDS: CALCIUM CARBONATE CHEW 500 MG TABLET PO SCH ×2 (08:53→20:56)
[2022-03-24] MEDS: MEMANTINE 10 MG TABLET PO SCH ×2 (08:53→20:56)
[2022-03-24] MEDS: FOLIC ACID 1 MG TABLET PO SCH (08:54)
[2022-03-24] MEDS: hydrALAZINE 25 MG TABLET PO SCH ×3 (08:54→20:56)
[2022-03-24] MEDS: amLODIPine 10 MG TABLET PO SCH (08:54)
[2022-03-24] MEDS: LEVOFLOXACIN 500 MG TABLET PO SCH (08:54)
[2022-03-24] MEDS: ISOSORBIDE MONONITRATE 30 MG TABLET PO SCH (08:54)
[2022-03-24] MEDS: ONDANSETRON 4 MG/2 ML VIAL IV PRN ×2 (11:52→17:45)
[2022-03-24] MEDS: DICLOFENAC 1% GEL 100 GM TUBE TOP SCH (20:57)
[2022-03-24] MEDS: LIDOCAINE 5% PATCH TRANSDERM SCH (20:57)
[2022-03-25 04:47] LABS: Calcium 7.2 MG/DL (8.5-10.1); Osmolality,Calculated 288.5 MOS/KG (273-304); Potassium 3.9 MMOL/L (3.5-5.1)
[2022-03-25] MEDS: DEXTROSE 5% NACL 0.9% 1,000 ML IV SCH (04:58)
[2022-03-25 05:00] LABS: Basophils % 0.5 % (0.0-0.8); Eosinophils # 0.3 10*3/uL (0.0-0.87); Eosinophils % 3.2 % (0.00-10.9); Hematocrit 27.2 VOL% (35.7-47.0); Hemoglobin 8.5 GM/DL (12.0-16.0); Immature Granulocytes % 0.8 %; Immature Granulocytes Absolute 0.06 #; Lymphocytes # 1.1 10*3/uL (1.4-4.0); Lymphocytes % 13.4 % (21.3-54.2); Mean Corpuscular HGB Conc 31.3 GM/DL (32-36); Mean Corpuscular Volume 93.8 FL (87-102); Monocytes # 0.7 10*3/uL (0.11-0.8); Monocytes % 8.3 % (1.7-12.7); Neutrophils % 73.8 % (38.7-73.9); Platelet Count 191 T/CUMM (130-400); Red Cell Distribution Width 17.3 % (9.3-17.3); White Blood Count 7.9 T/CUMM (4-12)
[2022-03-25] MEDS: LEVOTHYROXINE 100 MCG TABLET PO SCH (06:32)
[2022-03-25] MEDS: FOLIC ACID 1 MG TABLET PO SCH (09:11)
[2022-03-25] MEDS: MEMANTINE 10 MG TABLET PO SCH ×2 (09:11→20:47)
[2022-03-25] MEDS: ISOSORBIDE MONONITRATE 30 MG TABLET PO SCH (09:11)
[2022-03-25] MEDS: hydrALAZINE 25 MG TABLET PO SCH (09:11)
[2022-03-25] MEDS: amLODIPine 10 MG TABLET PO SCH (09:12)
[2022-03-25] MEDS: SODIUM BICARBONATE 650 MG TABLET PO SCH ×2 (09:12→20:45)
[2022-03-25] MEDS: DONEPEZIL 10 MG TABLET PO SCH (09:12)
[2022-03-25] MEDS: PANTOPRAZOLE 40 MG TABLET PO SCH (09:12)
[2022-03-25] MEDS: CALCIUM CARBONATE CHEW 500 MG TABLET PO SCH ×2 (09:13→20:45)
[2022-03-25] MEDS: DICLOFENAC 1% GEL 100 GM TUBE TOP SCH ×3 (10:14→20:47)
[2022-03-25] MEDS: LIDOCAINE 5% PATCH TRANSDERM SCH (20:47)
[2022-03-25] MEDS: MELATONIN 3 MG TABLET PO PRN (23:00)
[2022-03-26 04:07] LABS: Basophils % 0.3 % (0.0-0.8); Eosinophils # 0.3 10*3/uL (0.0-0.87); Eosinophils % 2.6 % (0.00-10.9); Hematocrit 29.2 VOL% (35.7-47.0); Immature Granulocytes % 0.6 %; Immature Granulocytes Absolute 0.06 #; Lymphocytes % 10.9 % (21.3-54.2); Mean Corpuscular HGB Conc 30.8 GM/DL (32-36); Mean Corpuscular Volume 94.8 FL (87-102); Mean Platelet Volume 9.9 FL (9.6-12.0); Monocytes # 0.8 10*3/uL (0.11-0.8); Monocytes % 8.8 % (1.7-12.7); Neutrophils % 76.8 % (38.7-73.9); Platelet Count 197 T/CUMM (130-400); Red Blood Count 3.08 MC/CUMM (3.8-5.5); Red Cell Distribution Width 17.4 % (9.3-17.3); White Blood Count 9.4 T/CUMM (4-12)
[2022-03-26 04:26] LABS: Calcium 7.6 MG/DL (8.5-10.1); Potassium 3.7 MMOL/L (3.5-5.1)
[2022-03-26] MEDS: LEVOTHYROXINE 100 MCG TABLET PO SCH (06:08)
[2022-03-26] MEDS ORDERED: DEXTROSE 50% 25 GM/50 ML SYRINGE IV ONE ×2 (09:33→11:00)
[2022-03-26] MEDS: amLODIPine 10 MG TABLET PO SCH (09:47)
[2022-03-26] MEDS: ISOSORBIDE MONONITRATE 30 MG TABLET PO SCH (09:48)
[2022-03-26] MEDS: PANTOPRAZOLE 40 MG TABLET PO SCH (09:48)
[2022-03-26] MEDS: MEMANTINE 10 MG TABLET PO SCH ×2 (09:49→20:57)
[2022-03-26] MEDS: DONEPEZIL 10 MG TABLET PO SCH (09:50)
[2022-03-26] MEDS: FOLIC ACID 1 MG TABLET PO SCH (09:50)
[2022-03-26] MEDS: CALCIUM CARBONATE CHEW 500 MG TABLET PO SCH ×2 (09:50→20:56)
[2022-03-26] MEDS: SODIUM BICARBONATE 650 MG TABLET PO SCH ×2 (09:50→20:56)
[2022-03-26] MEDS: LEVOFLOXACIN 500 MG TABLET PO SCH (09:50)
[2022-03-26] MEDS ORDERED: DICLOFENAC 1% GEL 100 GM TUBE TOP PRN (09:55)
[2022-03-26] MEDS ORDERED: DEXTROSE 10% 250 ML BAG IV PRN (10:09)
[2022-03-26] MEDS: DICLOFENAC 1% GEL 100 GM TUBE TOP SCH (10:54)
[2022-03-26] MEDS ORDERED: BUPIVACAINE MPF 0.25% 30 ML VIAL ONE (12:20)
[2022-03-26] MEDS ORDERED: LIDOCAINE 1%/EPI INJ 20 ML VIAL ONE (12:21)
[2022-03-26] MEDS ORDERED: HEPARIN 5,000 UNIT/1 ML VIAL ONE (12:38)
[2022-03-26] MEDS ORDERED: DEXMEDETOMIDINE 200 MCG/2 ML VIAL ONE (12:53)
[2022-03-26] MEDS ORDERED: propofoL 200 MG/20 ML VIAL IV ONE (12:53)
[2022-03-26] MEDS ORDERED: LIDOCAINE 2% 5 ML VIAL ONE (12:53)
[2022-03-26] MEDS ORDERED: ETOMIDATE 40 MG/20 ML VIAL IV ONE (12:53)
[2022-03-26] MEDS ORDERED: MIDAZOLAM 2 MG/2 ML VIAL ONE (12:54)
[2022-03-26] MEDS ORDERED: ONDANSETRON 4 MG/2 ML VIAL ONE (12:55)
[2022-03-26] MEDS ORDERED: DEXAMETHASONE 4 MG/1 ML VIAL ONE (12:55)
[2022-03-26] MEDS ORDERED: DEXTROSE 5% 1,000 ML IV SCH (13:30)
[2022-03-26] MEDS ORDERED: DEXTROSE 50% 25 GM/50 ML SYRINGE IV PRN (13:30)
[2022-03-26 14:53] VITALS: BP 117/49
[2022-03-26] MEDS: MELATONIN 3 MG TABLET PO PRN (20:56)
[2022-03-26] MEDS: LIDOCAINE 5% PATCH TRANSDERM SCH (21:02)
[2022-03-26] MEDS: MORPHINE 2 MG/1 ML SYRINGE IV PRN (21:35)
[2022-03-27 04:54] LABS: Hematocrit 27.1 VOL% (35.7-47.0); Hemoglobin 8.4 GM/DL (12.0-16.0); Immature Granulocytes % 0.3 %; Immature Granulocytes Absolute 0.02 #; Lymphocytes # 0.4 10*3/uL (1.4-4.0); Lymphocytes % 6.5 % (21.3-54.2); Mean Corpuscular Volume 93.4 FL (87-102); Mean Platelet Volume 10.3 FL (9.6-12.0); Monocytes # 0.3 10*3/uL (0.11-0.8); Monocytes % 5.5 % (1.7-12.7); Neutrophils % 87.7 % (38.7-73.9); Platelet Count 152 T/CUMM (130-400); Red Cell Distribution Width 17.1 % (9.3-17.3)
[2022-03-27 05:22] LABS: Calcium 8.6 MG/DL (8.5-10.1); Potassium 4.2 MMOL/L (3.5-5.1)
[2022-03-27] MEDS: LEVOTHYROXINE 100 MCG TABLET PO SCH (06:22)
[2022-03-27] MEDS: MEMANTINE 10 MG TABLET PO SCH ×2 (12:33→20:26)
[2022-03-27] MEDS: ISOSORBIDE MONONITRATE 30 MG TABLET PO SCH (12:33)
[2022-03-27] MEDS: CALCIUM CARBONATE CHEW 500 MG TABLET PO SCH ×2 (12:33→20:26)
[2022-03-27] MEDS: PANTOPRAZOLE 40 MG TABLET PO SCH (12:33)
[2022-03-27] MEDS: SODIUM BICARBONATE 650 MG TABLET PO SCH ×2 (12:33→20:26)
[2022-03-27] MEDS: FOLIC ACID 1 MG TABLET PO SCH (12:33)
[2022-03-27] MEDS: DONEPEZIL 10 MG TABLET PO SCH (12:34)
[2022-03-27] MEDS: amLODIPine 10 MG TABLET PO SCH (12:34)
[2022-03-27] MEDS: MORPHINE 2 MG/1 ML SYRINGE IV PRN (15:06)
[2022-03-27] MEDS: LIDOCAINE 5% PATCH TRANSDERM SCH (20:26)
[2022-03-27] MEDS ORDERED: ZALEPLON 5 MG CAPSULE PO SCH (21:00)
[2022-03-28] MEDS: LEVOTHYROXINE 100 MCG TABLET PO SCH (06:27)
[2022-03-28 06:44] LABS: Basophils % 0.2 % (0.0-0.8); Eosinophils # 0.1 10*3/uL (0.0-0.87); Eosinophils % 0.7 % (0.00-10.9); Hematocrit 26.8 VOL% (35.7-47.0); Hemoglobin 8.3 GM/DL (12.0-16.0); Immature Granulocytes % 0.7 %; Immature Granulocytes Absolute 0.07 #; Lymphocytes # 0.9 10*3/uL (1.4-4.0); Mean Platelet Volume 10.3 FL (9.6-12.0); Monocytes % 10.8 % (1.7-12.7); Neutrophils % 78.6 % (38.7-73.9); Platelet Count 173 T/CUMM (130-400); Red Blood Count 2.85 MC/CUMM (3.8-5.5); White Blood Count 9.7 T/CUMM (4-12)
[2022-03-28 07:14] LABS: Calcium 8.3 MG/DL (8.5-10.1); Osmolality,Calculated 270.2 MOS/KG (273-304); Potassium 3.7 MMOL/L (3.5-5.1)
[2022-03-28] MEDS: FOLIC ACID 1 MG TABLET PO SCH (09:29)
[2022-03-28] MEDS: ISOSORBIDE MONONITRATE 30 MG TABLET PO SCH (09:29)
[2022-03-28] MEDS: MEMANTINE 10 MG TABLET PO SCH ×2 (09:29→20:45)
[2022-03-28] MEDS: CALCIUM CARBONATE CHEW 500 MG TABLET PO SCH ×2 (09:29→20:45)
[2022-03-28] MEDS: LORATADINE 10 MG TABLET PO SCH (09:29)
[2022-03-28] MEDS: amLODIPine 10 MG TABLET PO SCH (09:29)
[2022-03-28] MEDS: SODIUM BICARBONATE 650 MG TABLET PO SCH ×2 (09:29→20:45)
[2022-03-28] MEDS: PANTOPRAZOLE 40 MG TABLET PO SCH (09:30)
[2022-03-28] MEDS: DONEPEZIL 10 MG TABLET PO SCH (09:30)
[2022-03-28] MEDS ORDERED: LEVOFLOXACIN 500 MG TABLET PO SCH (09:30)
[2022-03-28] MEDS: FLUTICASONE 50 MCG NASAL SPRAY 16 GM BOTTLE BOTH NARES SCH ×2 (09:33→20:46)
[2022-03-28] MEDS: LEVOFLOXACIN 500 MG TABLET PO SCH (09:33)
[2022-03-28] MEDS: ALBUTEROL 2.5 MG/3 ML NEB RESP TX PRN (09:34)
[2022-03-28] MEDS: ONDANSETRON 4 MG/2 ML VIAL IV PRN (10:12)
[2022-03-28] MEDS ORDERED: metOLazone 5 MG TABLET PO ONE (10:56)
[2022-03-28] MEDS ORDERED: FUROSEMIDE 100 MG/10 ML VIAL IV ONE (12:00)
[2022-03-28] MEDS ORDERED: EPOETIN ALFA-EPBX 4,000 UNIT/ML VIAL IV PRN (16:08)
[2022-03-28] MEDS: LIDOCAINE 5% PATCH TRANSDERM SCH (20:54)
[2022-03-28] MEDS: MELATONIN 3 MG TABLET PO PRN (23:42)
[2022-03-29] MEDS: LEVOTHYROXINE 100 MCG TABLET PO SCH (05:33)
[2022-03-29 06:51] LABS: Basophils % 0.2 % (0.0-0.8); Eosinophils % 0.2 % (0.00-10.9); Hematocrit 28.7 VOL% (35.7-47.0); Hemoglobin 9.1 GM/DL (12.0-16.0); Immature Granulocytes % 1.5 %; Immature Granulocytes Absolute 0.15 #; Lymphocytes # 0.6 10*3/uL (1.4-4.0); Lymphocytes % 5.9 % (21.3-54.2); Mean Corpuscular HGB Conc 31.7 GM/DL (32-36); Mean Platelet Volume 9.9 FL (9.6-12.0); Monocytes # 0.9 10*3/uL (0.11-0.8); Monocytes % 8.5 % (1.7-12.7); Neutrophils % 83.7 % (38.7-73.9); Platelet Count 168 T/CUMM (130-400); Red Blood Count 3.12 MC/CUMM (3.8-5.5); Red Cell Distribution Width 16.5 % (9.3-17.3)
[2022-03-29 07:31] LABS: Calcium 8.9 MG/DL (8.5-10.1); Osmolality,Calculated 267.7 MOS/KG (273-304); Potassium 4.2 MMOL/L (3.5-5.1)
[2022-03-29] MEDS ORDERED: metOLazone 5 MG TABLET PO ONE (08:46)
[2022-03-29] MEDS ORDERED: POLYETHYLENE GLYCOL POWDER 17 GM PACK PO SCH (09:00)
[2022-03-29] MEDS: CALCIUM CARBONATE CHEW 500 MG TABLET PO SCH (09:32)
[2022-03-29] MEDS: SODIUM BICARBONATE 650 MG TABLET PO SCH (09:33)
[2022-03-29] MEDS: MEMANTINE 10 MG TABLET PO SCH (09:33)
[2022-03-29] MEDS: FOLIC ACID 1 MG TABLET PO SCH (09:34)
[2022-03-29] MEDS: ISOSORBIDE MONONITRATE 30 MG TABLET PO SCH (09:34)
[2022-03-29] MEDS: amLODIPine 10 MG TABLET PO SCH (09:34)
[2022-03-29] MEDS: PANTOPRAZOLE 40 MG TABLET PO SCH (09:34)
[2022-03-29] MEDS: LORATADINE 10 MG TABLET PO SCH (09:34)
[2022-03-29] MEDS: DONEPEZIL 10 MG TABLET PO SCH (09:34)
[2022-03-29] MEDS: FLUTICASONE 50 MCG NASAL SPRAY 16 GM BOTTLE BOTH NARES SCH (09:35)
[2022-03-29] MEDS ORDERED: BENZONATATE 100 MG CAPSULE PO PRN (09:42)
[2022-03-29] MEDS ORDERED: FUROSEMIDE 100 MG/10 ML VIAL IV ONE (09:45)
== END 2022-03-29 15:27 | disposition home or self-care (01) | DRG 981 ==
LOC: N.ED 09:25 → N.ICU 11:28 → SUATTDRO 11:28 → N.ICU 14:39
PROVIDERS: ADMIT Internal Medicine; ATTEND Internal Medicine